=== PATIENT | female | born 1950 | race Caucasian/White ===

== ENCOUNTER 2020-04-29 08:32 | Outpatient (REF) | payer MEDICARE, SELFPAY ==
[2020-04-29 10:43] LABS: MANUAL DIFF FLAG NO
[2020-04-29 10:47] LABS: Basophils Percent Auto 0.7 % (0-2); Eosinophils Absolute Auto 0.1 X10*3/uL (0.0-0.4); Eosinophils Percent Auto 2.5 % (0-4); Hematocrit 40.3 % (37-47); Hemoglobin 13.4 g/dl (12.0-16.0); Imm Gran Abs Auto 0.01 X10*3/uL (0.00-0.03); Imm Gran Pct Auto 0.2 % (0.0-0.4); Lymphocytes Absolute Auto 1.4 X10*3/uL (1.2-4.9); Lymphocytes Percent Auto 34.5 % (20-40); Mean Corpuscular HGB Conc 33.3 g/dl (31.0-35.0); Mean Corpuscular Hemoglobin 32.9 pg (27.0-33.0); Mean Platelet Volume 10.9 fL (9.4-12.3); Monocytes Absolute Auto 0.5 X10*3/uL (0.1-1.2); Monocytes Percent Auto 11.4 % (2-11); Neutrophils Percent Auto 50.7 % (45-73); Platelet Count 206 X10*3/uL (160-400); Red Blood Count 4.07 X10*6/uL (4.20-5.50); Red Cell Distribution Width 13.2 % (11.0-16.0)
[2020-04-29 10:52] LABS: Glucose Urine UA NEG (NEG); Leukocyte Esterase Urine TRACE (NEG); Nitrite Urine NEG (NEG); PH 5.5 (5.0-8.0); Specific Gravity - Urine >= 1.030 (1.005-1.025); Urine Blood TRACE (NEG); Urine Ketones NEG (NEG); Urine Protein NEG (NEG-TRACE)
[2020-04-29 10:53] LABS: Appearance Urine CLOUDY; Color Urine YELLOW
[2020-04-29 11:07] LABS: Amorphous Sediment Urine 2+ /LPF; Bacteria Urine 1+ /LPF; RBC Urine 0-2 /HPF (0); Squamous Epithelial Cell Urine 1+ /LPF; WBC Urine 0-2 /HPF (0-4)
[2020-04-29 11:17] LABS: Creatinine Urine 186.99 mg/dL; Microalbum/Creatinine Ratio Ur 19.2 ug/mg cr
[2020-04-29 11:41] LABS: Alanine Aminotransferase 20 U/L (0-31); Albumin Level 4.2 g/dL (3.5-5.0); Alkaline Phosphatase 52 U/L (39-117); Anion Gap 13 (12-20); Aspartate Amino Transferase 20 U/L (5-31); Blood Urea Nitrogen 17 mg/dL (9-16); Calcium 9.4 mg/dL (8.4-10.2); Carbon Dioxide 28 mmol/L (22-29); Chloride 106 mmol/L (96-108); Cholesterol 291 mg/dL; Estimated Glomerular Filt Rate > 60; Glucose Fasting 112 mg/dL (60-99); HDL Cholesterol 103 mg/dL; LDL Cholesterol Calculated 172 mg/dl; Potassium 5.1 mmol/L (3.3-5.1); Sodium 142 mmol/L (135-145); Total Protein 6.7 g/dL (6.5-8.0); Triglycerides 83 mg/dL
[2020-04-29 12:07] LABS: TSH reflex Free T4 1.19 uIU/mL (0.32-4.0)
== END 2020-04-29 08:33 | disposition home or self-care (01) ==
LOC: HO.WFDLDS 08:32
PROVIDERS: Visit Provider Family Medicine
DX: Z00.00 Encounter for general adult medical examination without abnormal findings (principal); E78.00 Pure hypercholesterolemia, unspecified
CPT/HCPCS: 36415; 80053; 80061; 81001; 82043; 84443; 85025

== ENCOUNTER 2020-12-11 08:48 | Outpatient (REF) | payer MEDICARE, SELFPAY ==
[2020-12-11 12:36] LABS: Alanine Aminotransferase 20 U/L (0-31); Alkaline Phosphatase 48 U/L (39-117); Anion Gap 11 (12-20); Aspartate Amino Transferase 22 U/L (5-31); Bilirubin Total 0.9 mg/dL (0.0-1.0); Blood Urea Nitrogen 14 mg/dL (9-16); Calcium 9.5 mg/dL (8.4-10.2); Carbon Dioxide 28 mmol/L (22-29); Chloride 104 mmol/L (96-108); Cholesterol 285 mg/dL; Estimated Glomerular Filt Rate > 60; Glucose Fasting 108 mg/dL (60-99); HDL Cholesterol 87 mg/dL; LDL Cholesterol Calculated 185 mg/dl; Potassium 5.1 mmol/L (3.3-5.1); Sodium 138 mmol/L (135-145); Total Protein 6.7 g/dL (6.5-8.0); Triglycerides 69 mg/dL
[2020-12-11 13:41] LABS: Estimated Average Glucose 111 mg/dL; Hemoglobin A1c % 5.5 %
== END 2020-12-11 08:49 | disposition home or self-care (01) ==
LOC: HO.WFDLDS 08:48
PROVIDERS: Visit Provider Family Medicine
DX: Z00.00 Encounter for general adult medical examination without abnormal findings (principal); E78.00 Pure hypercholesterolemia, unspecified; R73.01 Impaired fasting glucose
CPT/HCPCS: 36415; 80053; 80061; 83036

== ENCOUNTER 2021-01-02 09:05 | Outpatient (REF) | payer MEDICARE, SELFPAY ==
--- NOTE | ~2021-01-02 | MM_ITS ---
EXAMINATION: BONE DENSITOMETRY CLINICAL INDICATION: Encounter for screening for osteoporosis. COMPARISON: Baseline BD dated 10/12/2017. TECHNIQUE: Using a [employer] DXA System (software version: 13.1) manufactured by [employer], dual-energy x-ray absorptiometry was performed of the lumbar spine and left hip. The images are of good technical quality. Summary results are attached. FINDINGS: AP SPINE L1-L2 (excluding L3 and L4): The data of L1-L4 has been changed to exclude the L3 and L4 vertebral bodies, because degenerative changes at these levels may cause overestimation of lumbar spine density. Current: BMD 1.156 g/cm2, Z-score 1.2, T-score -0.1, normal, 0.3% increase from baseline (<5% change is not significant). Baseline: BMD 1.152 g/cm2. LEFT FEMUR, NECK: Current: BMD 0.836 g/cm2, Z-score 0.0, T-score -1.5, osteopenia. Baseline: BMD 0.843 g/cm2. LEFT FEMUR, TOTAL: Current: BMD 0.936 g/cm2, Z-score 0.6, T-score -0.6, normal, 1.7% decrease from baseline (<5% change is not significant). Baseline: BMD 0.952 g/cm2. IDENTIFIED RISK FACTORS: Low calcium intake, hysterectomy, left oophorectomy, menopause. HISTORY OF FRACTURE: None listed. MEDICATIONS: Calcium supplements or multivitamin, vitamin D. MM/XR DEXA axial skeleton IMPRESSION: 1. DIAGNOSIS: Osteopenia based on the lowest T-score value of -1.5 in the femoral neck applying World Health Organization criteria. 2. 10-YEAR FRACTURE RISK PREDICTION, FRAX: Major osteoporotic fracture (clinical spine, forearm, hip or shoulder) 9.5%. Hip fracture 1.3%. 3. Treatment Recommendations: NOF guidelines recommend consideration for treatment in postmenopausal women and men age 50 and older presenting with the following: -A hip or vertebral (clinical or morphometric) fracture. -T-score less than or equal to -2.5 at the femoral neck or spine after appropriate evaluation to exclude secondary causes. -Low bone mass at the hip or spine and a 10-year fracture probability by FRAX of greater than or equal to 3% for hip fracture or greater than or equal to 20% for major osteoporotic fracture based on the [place] adapted WHO algorithm. 4. Other Recommendations: All treatment decisions require clinical judgment and consideration of individual patient factors, including patient preferences, comorbidities, previous drug use, risk factors not captured in the FRAX model (e.g. frailty, falls, vitamin D deficiency, increased bone turnover, interval significant decline in bone density) and possible under or overestimation of fracture risk by FRAX. Additional medical evaluation for secondary cause of low bone mineral density may be appropriate. FUTURE SCAN RECOMMENDATION: People with diagnosed cases of osteoporosis or at high risk for fracture should have regular bone mineral density tests. For patients eligible for Medicare, routine testing is allowed once every 2 years. The testing frequency can be increased to one year for patients who have rapidly progressing disease, those who are receiving or discontinuing medical therapy to restore bone mass, or have additional risk factors.
== END 2021-01-02 09:06 | disposition home or self-care (01) ==
LOC: HO.MAMMO 09:05
PROVIDERS: Visit Provider Family Medicine
DX: Z13.820 Encounter for screening for osteoporosis (principal); M85.80 Other specified disorders of bone density and structure, unspecified site; Z78.0 Asymptomatic menopausal state; Z79.899 Other long term (current) drug therapy; Z98.890 Other specified postprocedural states
CPT/HCPCS: 77080

== ENCOUNTER 2021-04-02 07:37 | Outpatient (REF) | payer MEDICARE, SELFPAY ==
[2021-04-02 11:07] LABS: Cholesterol 278 mg/dL; HDL Cholesterol 88 mg/dL; LDL Cholesterol Calculated 161 mg/dl; Triglycerides 145 mg/dL
== END 2021-04-02 07:38 | disposition home or self-care (01) ==
LOC: HO.WFDLDS 07:37
PROVIDERS: Visit Provider Family Medicine
DX: E78.00 Pure hypercholesterolemia, unspecified (principal)
CPT/HCPCS: 36415; 80061

== ENCOUNTER 2021-06-20 07:55 | Outpatient (REF) | payer MEDICARE, SELFPAY ==
[2021-06-20 12:06] LABS: TSH reflex Free T4 1.79 uIU/mL (0.32-4.0)
[2021-06-20 12:14] LABS: Alanine Aminotransferase 19 U/L (0-31); Albumin Level 3.9 g/dL (3.5-5.0); Alkaline Phosphatase 54 U/L (39-117); Anion Gap 13 (12-20); Aspartate Amino Transferase 22 U/L (5-31); Blood Urea Nitrogen 20 mg/dL (9-16); Calcium 9.4 mg/dL (8.4-10.2); Carbon Dioxide 28 mmol/L (22-29); Chloride 104 mmol/L (96-108); Cholesterol 261 mg/dL; Estimated Glomerular Filt Rate > 60; Glucose Fasting 116 mg/dL (60-99); HDL Cholesterol 85 mg/dL; LDL Cholesterol Calculated 152 mg/dl; Potassium 4.8 mmol/L (3.3-5.1); Sodium 140 mmol/L (135-145); Total Protein 6.6 g/dL (6.5-8.0); Triglycerides 121 mg/dL
== END 2021-06-20 07:56 | disposition home or self-care (01) ==
LOC: HO.WFDLDS 07:55
PROVIDERS: Visit Provider Family Medicine
DX: Z00.00 Encounter for general adult medical examination without abnormal findings (principal); E78.00 Pure hypercholesterolemia, unspecified
CPT/HCPCS: 36415; 80053; 80061; 84443

== ENCOUNTER 2021-07-01 09:46 | Outpatient (REF) | payer MEDICARE, SELFPAY ==
[2021-07-01 11:33] LABS: MANUAL DIFF FLAG NO
[2021-07-01 11:49] LABS: Basophils Percent Auto 0.6 % (0-2); Eosinophils Absolute Auto 0.1 X10*3/uL (0.0-0.4); Eosinophils Percent Auto 1.3 % (0-4); Hematocrit 40.3 % (37.0-47.0); Hemoglobin 13.5 g/dl (12.0-16.0); Imm Gran Abs Auto 0.01 X10*3/uL (0.00-0.03); Imm Gran Pct Auto 0.2 % (0.0-0.4); Lymphocytes Absolute Auto 1.2 X10*3/uL (1.2-4.9); Mean Corpuscular HGB Conc 33.5 g/dl (31.0-35.0); Mean Corpuscular Hemoglobin 33.3 pg (27.0-33.0); Mean Corpuscular Volume 99.3 fL (80.0-98.0); Monocytes Absolute Auto 0.5 X10*3/uL (0.1-1.2); Monocytes Percent Auto 11.5 % (2-11); Neutrophils Absolute Auto 2.8 x10*3/uL (2.0-8.3); Neutrophils Percent Auto 60.4 % (45-73); Platelet Count 191 X10*3/uL (160-400); Red Blood Count 4.06 X10*6/uL (4.20-5.50); Red Cell Distribution Width 13.2 % (11.0-16.0); White Blood Count 4.7 X10*3/uL (4.8-10.8)
[2021-07-01 11:55] LABS: Iron 90 mcg/dL (30-160); Percent Iron Saturation 22 % (15-50); Total Iron Binding Capacity 403 mcg/dL (228-428); Unsaturated Iron Binding 313 ug/dL
== END 2021-07-01 09:47 | disposition home or self-care (01) ==
LOC: HO.WFDLDS 09:46
PROVIDERS: Visit Provider Family Medicine
DX: Z00.00 Encounter for general adult medical examination without abnormal findings (principal); E61.1 Iron deficiency
CPT/HCPCS: 36415; 83540; 85025

== ENCOUNTER 2021-08-11 08:15 | Outpatient (REF) | payer MEDICARE, SELFPAY ==
[2021-08-11 11:46] LABS: Alanine Aminotransferase 22 U/L (0-31); Alkaline Phosphatase 49 U/L (39-117); Anion Gap 13 (12-20); Aspartate Amino Transferase 22 U/L (5-31); Bilirubin Total 1.1 mg/dL (0.0-1.0); Blood Urea Nitrogen 13 mg/dL (9-16); Calcium 9.2 mg/dL (8.4-10.2); Carbon Dioxide 27 mmol/L (22-29); Chloride 104 mmol/L (96-108); Cholesterol 286 mg/dL; Estimated Glomerular Filt Rate > 60; Glucose Fasting 100 mg/dL (60-99); HDL Cholesterol 84 mg/dL; LDL Cholesterol Calculated 182 mg/dl; Potassium 4.8 mmol/L (3.3-5.1); Sodium 139 mmol/L (135-145); Total Protein 6.7 g/dL (6.5-8.0); Triglycerides 102 mg/dL
[2021-08-11 12:10] LABS: Estimated Average Glucose 111 mg/dL; Hemoglobin A1c % 5.5 %
== END 2021-08-11 08:16 | disposition home or self-care (01) ==
LOC: HO.WFDLDS 08:15
PROVIDERS: Visit Provider Family Medicine
DX: Z00.00 Encounter for general adult medical examination without abnormal findings (principal); R73.01 Impaired fasting glucose; E78.00 Pure hypercholesterolemia, unspecified
CPT/HCPCS: 36415; 80053; 80061; 83036

== ENCOUNTER 2021-10-16 10:24 | Outpatient (REF) | payer MEDICARE, SELFPAY ==
[2021-10-16 14:55] LABS: Cholesterol 277 mg/dL; HDL Cholesterol 95 mg/dL; LDL Cholesterol Calculated 166 mg/dl; Triglycerides 81 mg/dL
== END 2021-10-16 10:25 | disposition home or self-care (01) ==
LOC: HO.WFDLDS 10:24
PROVIDERS: Visit Provider Family Medicine
DX: E78.00 Pure hypercholesterolemia, unspecified (principal)
CPT/HCPCS: 36415; 80061

== ENCOUNTER 2022-02-04 08:12 | Outpatient (REF) | payer MEDICARE, SELFPAY ==
[2022-02-04 12:11] LABS: Cholesterol 262 mg/dL; HDL Cholesterol 91 mg/dL; LDL Cholesterol Calculated 157 mg/dl; Triglycerides 74 mg/dL
== END 2022-02-04 08:13 | disposition home or self-care (01) ==
LOC: HO.WFDLDS 08:12
PROVIDERS: Visit Provider Family Medicine
DX: Z00.00 Encounter for general adult medical examination without abnormal findings (principal); E78.00 Pure hypercholesterolemia, unspecified
CPT/HCPCS: 36415; 80061

== ENCOUNTER 2022-06-15 09:47 | Outpatient (REF) | payer MEDICARE, SELFPAY ==
[2022-06-15 12:15] LABS: Anion Gap 13 (12-20); Blood Urea Nitrogen 17 mg/dL (9-16); Calcium 9.1 mg/dL (8.4-10.2); Carbon Dioxide 27 mmol/L (22-29); Chloride 107 mmol/L (96-108); Cholesterol 254 mg/dL; Estimated Glomerular Filt Rate > 60; Glucose Fasting 110 mg/dL (60-99); HDL Cholesterol 82 mg/dL; LDL Cholesterol Calculated 153 mg/dl; Potassium 4.7 mmol/L (3.3-5.1); Sodium 142 mmol/L (135-145); Triglycerides 96 mg/dL
[2022-06-15 12:23] LABS: Estimated Average Glucose 114 mg/dL; Hemoglobin A1c % 5.6 %
== END 2022-06-15 09:48 | disposition home or self-care (01) ==
LOC: HO.WFDLDS 09:47
PROVIDERS: Visit Provider Family Medicine
DX: Z00.00 Encounter for general adult medical examination without abnormal findings (principal); R73.01 Impaired fasting glucose; E78.00 Pure hypercholesterolemia, unspecified; I10 Essential (primary) hypertension
CPT/HCPCS: 36415; 80048; 80061; 83036

== ENCOUNTER 2022-10-09 09:14 | Outpatient (AMB) | payer MEDICARE, SELFPAY ==
[2022-10-09 09:22] VITALS: BP 130/76; PULSE 68; O2SAT 99; BMI 28.9
--- NOTE | 2022-10-09 09:22 | A.OFFPC_ITS ---
Vital Signs 10/09/22 09:22 Height 5 ft 4 in Weight 168 lb 4 oz BMI 28.9 BP 130/76 Blood Pressure Location Lt brachial Position Sitting Pulse 68 Pulse Source Pulse Oximeter Pulse Oximetry (%) 99 Oxygen Delivery Method Room Air Intake Visit Reasons: f/u hypertension and hypercholesterolemia Intake Note: Patient is here to follow up on hypertension and hypercholesterolemia. Allergies poison crystal extract [POISON CRYSTAL] Allergy (Unknown, Verified 10/09/22 09:26) RASH, SWELLING Medication List - Last Reconciled 10/09/22 by Emery Souza MD ezetimibe 10 mg PO DAILY 90 days lisinopril 10 mg PO DAILY 90 days Tobacco use date assessed: 10/09/22 Fall risk assessment: No Falls in past year Last assessed Fall Risk: 10/09/22 Dental Screening Dental Screen Date: 10/09/22 Did you have a dental visit in the last 12 months?: Yes Did you have a dental problem in the last 6 months where you did not have access to dental care?: No Was dental information given to patient?: No HPI f/u hypertension and hypercholesterolemia HPI Details 72 y/o female presents to f/u hypertension and hypercholesterolemia. Labs were drawn 06/15/22. Reviewed labs with pt. Triglycerides 96. TC 254. LDL 153. HDL 82. She is on ezetimibe 10mg daily. A1c 5.6%. A1c today 10/09/22 is 5.6%. Blood pressure today is 130/76. She is on lisinopril 10mg daily. HPI Comments History of Present Illness Details Documentation assistance for Emery Souza MD, was provided by Markus Mora, Cereal Miller on 10/09/2022 9:49 AM EST. [place], Dr. Souza, have read, observed, and verified documentation. 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 Phil Gross, Kacie Us, Ryan Burden and colleagues, with an educational scout from [employer]. Physical exam (Primary Care) Vital Signs: Last Vital Signs Pulse 68 10/09/22 09:22 BP 130/76 10/09/22 09:22 Pulse Ox 99 10/09/22 09:22 Oxygen Delivery Method Room Air 10/09/22 09:22 BMI result Body Mass Index 28.9 Tobacco/Smoking Status: Tobacco use Status Tobacco use date assessed 10/09/22 10/09/22 09:31 Patient Tobacco Use Status Never used Tobacco 10/09/22 09:24 e-Cigarette/Vaping Use Never Used 10/09/22 09:24 Thrive Assessment: Date of Thrive Assessment Date Thrive assessed 12/24/20 10/09/22 09:24 Results AMB Hemoglobin A1c AMB Hemoglobin A1c 5.6 % Last Edit by Ammy Moulton on 10/09/22 10:0 9 Assessment and Plan Assessment & Plan (1) Essential hypertension: Code(s): I10 - Essential (primary) hypertension Plan: Blood pressure is controlled on lisinopril. Goal is less than 140/90 Continue current medication Watch salt/sodium and maintain weight and exercise (2) Hypercholesterolemia: Code(s): E78.00 - Pure hypercholesterolemia, unspecified Plan: She does not tolerate statins and had high LDL cholesterol but also high HDL with good HDL ratios. Added Zetia which he is tolerating and ratios have improved though LDL is still above preferred goal Continue current medication regimen Continue a diet low in saturated fats and cholesterol (3) Elevated fasting blood sugar: Code(s): R73.01 - Impaired fasting glucose Plan: History of elevated fasting blood sugar and last A1c was 5.6%; top-normal. A1c today Coding Level of Care Code Est Pt Level 3 (55952) Diagnoses Essential hypertension I10 Hypercholesterolemia E78.00 Elevated fasting blood sugar R73.01
== END 2022-10-09 10:21 | disposition home or self-care (01) ==
PROVIDERS: PCP Family Medicine; Visit Provider Family Medicine
DX: I10 Essential (primary) hypertension (principal); E78.00 Pure hypercholesterolemia, unspecified; R73.01 Impaired fasting glucose
CPT/HCPCS: 99213

== ENCOUNTER 2023-01-20 09:20 | Outpatient (AMB) | payer MEDICARE, SELFPAY ==
--- NOTE | 2023-01-20 09:24 | A.OFFPC_ITS ---
Vital Signs 01/20/23 09:25 Height 5 ft 4 in Weight 171 lb 6 oz BMI 29.4 BP 128/76 Blood Pressure Location Rt brachial Position Sitting Respiration 16 Pulse 71 Pulse Source Pulse Oximeter Temp 16 F L Pulse Oximetry (%) 99 Oxygen Delivery Method Room Air Intake Visit Reasons: f/u hypertension and chronic conditions Intake Note: Patient is here for follow up on Lisinopril, and to follow up on chronic conditions. She states she feels a little light headed since taling this med. Allergies poison crystal extract [POISON CRYSTAL] Allergy (Unknown, Verified 01/20/23 09:26) RASH, SWELLING Tobacco use date assessed: 01/20/23 HPI f/u hypertension and chronic conditions HPI Details 72 y/o female presents to f/u hypertensi on and chronic conditions. Last A1c 10/09/22 5.6%. A1c today 01/20/23 is 5.6%. Blood pressure today is 128/76. She is on lisinopril 10mg daily. She does note lisinopril has making her lightheaded in the morning. 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 Phil Gross, Kacie Us, Ryan Burden and colleagues, with an educational scout from [employer]. Review of Systems Const Denies chills, Denies fatigue, Denies fever(s), Denies headache(s) and Denies weakness ENT Denies dizziness and Denies headache(s) Card Denies chest pain, Denies lightheadedness, Denies dyspnea and Denies other (Palpitations) Resp Denies cough, Denies dyspnea, Denies wheezing and Denies other ( shortness of breath) Musc Denies numbness and Denies tingling Neuro Denies dizziness, Denies headache(s), Denies numbness, Denies tingling, Denies paresthesias and Denies weakness Psych Denies anxiety and Denies depression Endo Denies fatigue Aller/Immun Denies wheezing Physical exam (Primary Care) Vital Signs: Last Vital Signs Temp 16 F L 01/20/23 09:25 Pulse 71 01/20/23 09:25 Resp 16 01/20/23 09:25 BP 128/76 01/20/23 09:25 Pulse Ox 99 01/20/23 09:25 Oxygen Delivery Method Room Air 01/20/23 09:25 BMI result Body Mass Index 29.4 Tobacco/Smoking Status: Tobacco use Status Tobacco use date assessed 01/20/23 01/20/23 09:31 Patient Tobacco Use Status Never used Tobacco 01/20/23 09:31 e-Cigarette/Vaping Use Never Used 01/20/23 09:31 Thrive Assessment: Date of Thrive Assessment Date Thrive assessed 12/24/20 01/20/23 09:31 Const General: no acute distress and well developed Nutritional Appearance: well nourished Orientation/consciousness: patient oriented x3 HENMT Head: Yes normocephalic and Yes atraumatic Eyes General: appearance normal, both eyes and all related structures Pupils: Equal, round and reactive pupils present EOM: EOMs intact bilaterally Resp Effort & Inspection: normal respiratory effort Auscultation: clear to auscultation bilaterally Cardio Rate: regular rate Rhythm: regular rhythm Heart sounds: S1 normal heart sound present, S2 normal heart sound present, no gallops, no murmurs and no rubs Neuro General: patient oriented x3 and gait normal Cranial nerves: Yes Equal, round and reactive pupils present Psych Affect: normal affect Assessment and Plan Assessment & Plan (1) Essential hypertension: Code(s): I10 - Essential (primary) hypertension Plan: Blood?pressure?appears?well?controlled?today.??Goal?is?less?than?140/90. Not?hypotensive?by?our?measurements?today?but?patient?did?note?that?she?gets?a?l ittle?lightheaded?when?bending?down?and?standing?back?up?again.??This?is?particu larly?happening?in?the?mornings. She?notes?she?is?not?much?of?a?water?drinker. She?does?have?a?blood?pressure?monitor?at?home Encouraged?her?to?increase?water?intake Check?blood?pressures?and?let?me?know?if ?blood?pressure?is?getting?low,?particularly?systolic?blood?pressure?less?than?1 05?with?symptoms. For?now,?continue?medication.??She?will?bring?me?in?a?log?of?her?blood?pressures ?at?her?next?visit. (2) Elevated fasting blood sugar: Code(s): R73.01 - Impaired fasting glucose Plan: She?is?h ad?elevated?fasting?blood?sugars?in?the?past.??A1c?is?again?5.6%?which?is?steady ?and?at?top?normal. Encouraged?diet?lower?in?sugars?and?starches Encouraged?exercise?and?weight?control. (3) Immunization counseling: Code(s): Z71.85 - Encounter for immunization safety counseling Plan: Patient?inquires?about?RSV?vaccine?and?I?recommend?this. Orders: Orders AMB Hemoglobin A1c Today Z13.9 - Encounter for screening, unspecified Coding Level of Care Code Est Pt Level 4 (51638) Diagnoses Essential hypertension I10 Elevated fasting blood sugar R73.01 Immunization counseling Z71.85
[2023-01-20 09:25] VITALS: BP 128/76; PULSE 71; RESP 16; TEMP -8.8; TEMP 16; O2SAT 99; BMI 29.4
== END 2023-01-20 09:50 | disposition home or self-care (01) ==
PROVIDERS: PCP Family Medicine; Visit Provider Family Medicine
DX: I10 Essential (primary) hypertension (principal); R73.01 Impaired fasting glucose; Z71.85 Encounter for immunization safety counseling
CPT/HCPCS: 99214

== ENCOUNTER 2023-04-20 09:14 | Outpatient (AMB) | payer MEDICARE, SELFPAY ==
--- NOTE | 2023-04-20 09:20 | MHC.PC.OV ---
Vital Signs 04/20/23 09:22 Height 5 ft 4 in Weight 166 lb 2 oz BMI 28.5 BP 120/72 Blood Pressure Location Rt brachial Position Sitting Pulse 68 Pulse Source Pulse Oximeter Pulse Oximetry (%) 97 Oxygen Delivery Method Room Air Intake Visit Reasons: Follow-up?hypertension Intake Note: Patient is here to follow up on HTN and medication review. Complaint of bowel habit change, with abdominal pain and lower back pain, stool softer every other day and miralax every third day. Balance Staff Inspector Required: No Certified Ski Patroller: Not Required per policy Accompanied by: Self / Same As Patient Allergies poison crystal extract [POISON CRYSTAL] Allergy (Unknown, Verified 04/20/23 09:22) RASH, SWELLING Tobacco use date assessed: 04/20/23 Fall risk assessment: No Falls in past year Last assessed Fall Risk: 04/20/23 Dental Screening Dental Screen Date: 04/20/23 Did you have a dental visit in the last 12 months?: Yes Did you have a dental problem in the last 6 months where you did not have access to dental care?: No Was dental information given to patient?: Patient has dentist HPI Follow-up?hypertension HPI Details 72 y/o female presents to f/u hypertension. Blood pressure today 120/72. She is on lisinopril 10mg daily. Pt reports abdominal pain and lower back pain today. She reports changes to her bowel habits. Pt reports she has been using a stool softener and miralax. 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 1. Little interest or pleasure in doing things: not at all 2. Feeling down, depressed, or hopeless: not at all 3. Trouble falling or staying asleep, or sleeping too much: not at all 4. Feeling tired or having little energy: not at all 5. Poor appetite or overeating: not at all 6. Feeling bad about yourself - or that you are a failure or have let yourself or your family down: not at all 7. Trouble concentrating on things, such as reading the newspaper or watching television: not at all 8. Moving or speaking so slowly that other people could have noticed. Or the opposite - being so fidgety or restless that you have been moving around a lot more than usual: not at all 9. Thoughts that you would be better off or of hurting yourself in some way: not at all Total score: 0 Depression Screening Interpretation: Negative Depression Screening Done: Yes Source: Developed by Drs. Phil Gross, Kacie Us, Ryan Burden and colleagues, with an educational scout from [employer]. Thrive Questionnaire Date Thrive assessed: 04/20/23 I am a: Patient What is your living situation today?: I have a steady place to live Within the past 12 months, did the food you bought not last and you didn't have the money to get more?: Never true Within the past 12 months, did you worry whether your food would run out before you got money to buy more?: Never true Do you have trouble paying for medicines?: No Do you have trouble getting transportation to medical appointments?: No Do you have trouble paying your heating and electricity bill?: No Do you have trouble taking care of your child, family member or friend?: No Do you have trouble with day-to-day activities such as bathing, preparing meals, shopping, managing finances, etc.?: No Are you currently unemployed and looking for a job?: No Are you interested in more education?: No Currently or been in a relationship where the following occur: no concerns reported THRIVE Score: 0 AUDIT C Alcohol Use Questionnaire (AUDIT-C) 1. How often do you have a drink containing alcohol?: 2-4 times a month 2. How many drinks containing alcohol do you have on a typical day when you are drinking?: 1 or 2 Total Score: 2 NAOMY-7 AMB Questionnaire NAOMY-7 Date NAOMY - 7 assessed: 04/20/23 Feeling nervous, anxious, or on edge: 1 = Several days Not being able to stop or control worryin = Several days Worrying too much about different things: 1 = Several days Trouble relaxin = Several days Being so restless that it is hard to sit still: 1 = Several days Becoming easily annoyed or irritable: 0 = Not at all Feeling afraid as if something awful might happen: 2 = More than half the days Total NAOMY-7 score (0-4 normal; 5-9 mild; 10-14 moderate; 15-21 severe): 7 Source: Developed by Drs. Phil Gross, Kacie Us, Ryan Burden and colleagues, with an educational scout from [employer]. Review of Systems Const Denies chills, Denies fatigue, Denies fever(s), Denies headache(s) and Denies weakness ENT Denies dizziness and Denies headache(s) Card Denies dyspnea Resp Denies cough, Denies dyspnea, Denies wheezing and Denies other (shortness of breath) Musc Denies numbness and Denies tingling Neuro Denies dizziness, Denies headache(s), Denies numbness, Denies tingling and Denies weakness Psych Denies anxiety and Denies depression Endo Denies fatigue Aller/Immun Denies wheezing Physical exam (Primary Care) Vital Signs: Last Vital Signs Pulse 68 04/20/23 09:22 BP 120/72 04/20/23 09:22 Pulse Ox 97 04/20/23 09:22 Oxygen Delivery Method Room Air 04/20/23 09:22 BMI result Body Mass Index 28.5 Tobacco/Smoking Status: Tobacco use Status Tobacco use date assessed 04/20/23 04/20/23 09:30 Patient Tobacco Use Status Never used Tobacco 04/20/23 09:30 e-Cigarette/Vaping Use Never Used 04/20/23 09:30 PHQ-9: PHQ-9 Score PHQ-9: Total score 0 04/20/23 10:13 Depression Screening Interpretation: Negative Thrive Assessment: Date of Thrive Assessment Date Thrive assessed 04/20/23 04/20/23 09:30 Currently or been in a relationship where the following occur: no concerns reported Const General: well developed; No acute distress Nutritional Appearance: well nourished Orientation/consciousness: patient oriented x3 [facility] Head: Yes normocephalic and Yes atraumatic Eyes General: appearance normal, both eyes and all related structures Pupils: Equal, round and reactive pupils present EOM: EOMs intact bilaterally Resp Effort & Inspection: normal respiratory effort Auscultation: clear to auscultation bilaterally Cardio Rate: regular rate Rhythm: regular rhythm Heart sounds: S1 normal heart sound present, S2 normal heart sound present, no gallops, no murmurs and no rubs Neuro General: patient oriented x3 and gait normal Cranial nerves: Yes Equal, round and reactive pupils present Psych Affect: normal affect Assessment and Plan Assessment & Plan (1) Essential hypertension: Code(s): I10 - Essential (primary) hypertension Plan: Blood?pressure?in?the?office?appears?controlled?but?her?log?of?blood?pressures?at?home?show?frequent?SBP?greater?than?140. She?can?take?lisinopril?10?mg?twice?a?day?when?blood?pressures?are?higher?than?140/90.??Otherwise?she?will?take?10?mg?daily ? (2) Abdominal pain: Code(s): R10.9 - Unspecified abdominal pain Plan: Patient?notes?abdominal?pain?and?distention?with?constipation. Increase?hydration Can?continue?MiraLax?every?other?day Try?simethicone?for?bloating Try?OTC?magnesium Referred?to?Gastroenterology (3) Constipation: Code(s): K59.00 - Constipation, unspecified Plan: As?above Orders: Referrals Gastroenterology Referral K59.00 - Constipation, unspecified, R10.9 - Unspecified abdominal pain Medications: New simethicone 80 mg PO BID-QID PRN 90 tabs 0RF abdominal distention 30 days Changed From lisinopril 10 mg PO DAILY 90 days 90 tabs 2RF To lisinopril 20 mg (2 x 10 mg) PO DAILY 180 tabs 2RF 90 days Coding Level of Care Code Est Pt Level 3 (42203) Diagnoses Essential hypertension I10 Abdominal pain R10.9 Constipation K59.00
[2023-04-20 09:22] VITALS: BP 120/72; PULSE 68; O2SAT 97; BMI 28.5
== END 2023-04-20 10:36 | disposition home or self-care (01) ==
PROVIDERS: PCP Family Medicine; Visit Provider Family Medicine
DX: I10 Essential (primary) hypertension (principal); R10.9 Unspecified abdominal pain; K59.00 Constipation, unspecified
CPT/HCPCS: 99213

== ENCOUNTER 2023-06-15 10:25 | Outpatient (AMB) | payer MEDICARE, SELFPAY ==
--- NOTE | 2023-06-15 10:35 | MHC.PC.OV ---
Vital Signs 06/15/23 10:36 Height 5 ft 4 in Weight 168 lb 2 oz BMI 28.9 BP 124/70 Blood Pressure Location Lt brachial Position Sitting Pulse 68 Pulse Source Pulse Oximeter Pulse Oximetry (%) 99 Oxygen Delivery Method Room Air Intake Visit Reasons: Follow-up?hypertension Intake Note: Patient is here for follow up on hypertension. Last BP of 130/70. Allergies poison crystal extract [POISON CRYSTAL] Allergy (Unknown, Verified 06/15/23 10:37) RASH, SWELLING Medication List - Last Reconciled 06/15/23 by Emery Souza MD ezetimibe 10 mg PO DAILY 90 days lisinopril 20 mg (2 x 10 mg) PO DAILY 90 days simethicone 80 mg PO BID-QID PRN 30 days Tobacco use date assessed: 06/15/23 Fall risk assessment: No Falls in past year Last assessed Fall Risk: 06/15/23 Dental Screening Dental Screen Date: 04/20/23 HPI Follow-up?hypertension HPI Details 73 y/o female presents to f/u hypertension. Had asked her to bring in a log of her blood pressures. Blood pressure today 124/70. She is on lisinopril 20mg daily. Blood pressure at home have been less than 130 systolic. 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 Phil Gross, Kacie Us, Ryan Burden and colleagues, with an educational scout from [employer]. Review of Systems Const Denies chills, Denies fatigue, Denies fever(s), Denies headache(s) and Denies weakness ENT Denies dizziness and Denies headache(s) Card Denies dyspnea Resp Denies cough, Denies dyspnea, Denies wheezing and Denies other (shortness of breath) Musc Denies numbness and Denies tingling Neuro Denies dizziness, Denies headache(s), Denies numbness, Denies tingling and Denies weakness Psych Denies anxiety and Denies depression Endo Denies fatigue Aller/Immun Denies wheezing Physical exam (Primary Care) BMI result Body Mass Index 28.9 Tobacco/Smoking Status: Tobacco use Status Tobacco use date assessed 04/20/23 04/20/23 09:30 Patient Tobacco Use Status Never used Tobacco 04/20/23 09:30 e-Cigarette/Vaping Use Never Used 04/20/23 09:30 Thrive Assessment: Date of Thrive Assessment Date Thrive assessed 04/20/23 04/20/23 09:30 Const General: well developed; No acute distress Nutritional Appearance: well nourished Orientation/consciousness: patient oriented x3 HENMT Head: Yes normocephalic and Yes atraumatic Eyes General: appearance normal, both eyes and all related structures Pupils: Equal, round and reactive pupils present EOM: EOMs intact bilaterally Resp Effort & Inspection: normal respiratory effort Neuro General: patient oriented x3 and gait normal Cranial nerves: Yes Equal, round and reactive pupils present Psych Affect: normal affect Assessment and Plan Assessment & Plan (1) Essential hypertension: Code(s): I10 - Essential (primary) hypertension Plan: Log?of?her?blood?pressures?shows?good?control.??Goal?is?less?than?140/90 No?dizziness - she?has?increased?her?fluid?intake?and?in?the?mornings?she?sits?on?the?side?of?her?bed?and?exercises?her?legs?until?she?is?ready?to?stand. Continue?current?medication?and?the?above?exercise?regimen Orders: Orders Comprehensive [place]. Panel Fast Today Z00.00 - Encounter for general adult medical examination without abnormal findings Complete Blood Count Auto Diff Today Z00.00 - Encounter for general adult medical examination without abnormal findings Lipid Panel Today Z00.00 - Encounter for general adult medical examination without abnormal findings TSH reflex Free T4 Today Z00.00 - Encounter for general adult medical examination without abnormal findings Hemoglobin A1c Today R73.01 - Impaired fasting glucose Microalbumin, Random (w Creat) Today I10 - Essential (primary) hypertension UA and rflx microscopic Today Z00.00 - Encounter for general adult medical examination without abnormal findings Coding Level of Care Code Est Pt Level 3 (61185) Diagnoses Essential hypertension I10
[2023-06-15 10:36] VITALS: BP 124/70; PULSE 68; O2SAT 99; BMI 28.9
== END 2023-06-15 10:58 | disposition home or self-care (01) ==
PROVIDERS: PCP Family Medicine; Visit Provider Family Medicine
DX: I10 Essential (primary) hypertension (principal)
CPT/HCPCS: 99213

== ENCOUNTER 2023-07-20 08:12 | Outpatient (AMB) | payer MEDICARE, SELFPAY ==
--- NOTE | 2023-07-20 08:43 | A.OFFVIS_ITS ---
Vital Signs 07/20/23 08:45 Height 5 ft 4 in Weight 169 lb BMI 29.0 BP 128/66 Blood Pressure Location Lt brachial Position Sitting Pulse 64 Intake Visit Reasons: Constipation/ Abd pain Intake Note: Patient new consult for abdominal pain and constipation. Patient cc: abdominal discomfort, and between diarrhea and constipation on and off. Capacitor Inspector Required: No Accompanied by: Self / Same As Patient Allergies poison crystal extract [POISON CRYSTAL] Allergy (Unknown, Verified 07/20/23 08:42) RASH, SWELLING HPI Comments Details: A 73 y/o female referred with constipation--she had 2 bouts of constipation-she has since taking stool softener- she says that helped a lot- she just feels she could go more-however she has not had any further constipation Colonoscopy 2018-no issues she took miralax with excellent response-she has not had any further issues, she feels she is well managed She eats s fruit and yogurt- she admits she does not eat fiber No nausea, vomiting, abdominal pain, hematemesis, hematochezia fever or chills PFSH Surgical History Hx of removal of ovary History of hysterectomy Family History Father Depression Mental health disorder Mother HTN (hypertension) Sister Mental health disorder Sister Depression Social History Housing: House Alcohol intake: current Alcohol intake frequency: a few times a month Patient Tobacco Use Status: Never used Tobacco e-Cigarette/Vaping Use: Never Used Second Hand Smoke Exposure: No service: No Current occupational status: employed and retired 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, 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 Current occupational exposures/hazards: No Cognitive needs: No Hearing needs: No Vision needs: Yes (glasses) Review of Systems Const All systems reviewed & are unremarkable except as noted in HPI and below Card Denies chest pain and Denies dyspnea Resp Denies dyspnea GI Denies abdominal pain, Denies hematochezia, Denies heartburn, Denies nausea and Denies vomiting Physical Exam Vital Signs: Last Vital Signs Pulse 64 07/20/23 08:45 BP 128/66 07/20/23 08:45 BMI result Body Mass Index 29.0 Const General: cooperative, healthy appearing, comfortable and no acute distress Orientation/consciousness: patient oriented x3 Limitations: no limitations Resp Effort & Inspection: normal respiratory effort and able to speak in complete sentences Auscultation: clear to auscultation bilaterally, no rales, no rhonchi and no wheezes Cardio Rate: regular rate Rhythm: regular rhythm Heart sounds: S1 normal heart sound present and S2 normal heart sound present GI Palpation (GI): Soft to palpation and nontender Auscultation: normal bowel sounds Skin General skin exam: no rashes or lesions noted Neuro General: patient oriented x3 Extrem General: Yes full ROM Psych Appearance: grossly normal Mental Status: mental status grossly normal Speech and movement: Normal speech and movement present and Clear speech present Affect: normal affect Attitude: cooperative Thought process: Normal thought process present Thought content: Normal thought content present Insight: Good insight present (Psych) Judgement: Good judgement present (Psych) Results Reviewed Results Reviewed: 2018- normal colonoscopy- repeat 10 years Assessment & Plan Assessment & Plan (1) Constipation: Comment: She prefers to manage by diet and fiber supplement-she would like to continue to monitor if any further episodes she will report Code(s): K59.00 - Constipation, unspecified Category: Medical Plan: fiber Plan HFD Consistent Orders: Orders 2 Complete Blood Count Auto Diff Today K59.00 - Constipation, unspecified, R10.9 - Unspecified abdominal pain Comprehensive Met. Panel Today K58.9 - Irritable bowel syndrome without diarrhea Thyroid Stimulating Hormone Today R19.8 - Other specified symptoms and signs involving the digestive system and abdomen Hepatitis C Antibody Reflex Today Z00.00 - Encounter for general adult medical examination without abnormal findings Patient Instructions: Very pleasant 73-year-old female to episodes of constipation now resolved Discussed importance of consistent bowel regimen Adequate hydrated Fiber supplements discussed menu planning literature given We will see her back in 6 months for progress sooner if indicated Encouraged to call with any questions or concerns Coding Level of Care Code New Pt Level 3 (30517) Diagnoses Constipation K59.00 Time Spent (min) 30
[2023-07-20 08:45] VITALS: BP 128/66; PULSE 64; BMI 29.0
== END 2023-07-20 09:25 | disposition home or self-care (01) ==
PROVIDERS: PCP Family Medicine; Visit Provider Physician Assistant
DX: K59.00 Constipation, unspecified (principal)
CPT/HCPCS: 99203

== ENCOUNTER → 2023-07-20 08:12 | Outpatient (BNVA) | payer MEDICARE, SELFPAY | PROVIDERS: PCP Family Medicine; Visit Provider Physician Assistant | DX: K59.00 Constipation, unspecified (principal) | CPT/HCPCS: 99202 ==

== ENCOUNTER 2023-10-26 08:18 | Outpatient (REF) | payer MEDICARE, SELFPAY ==
[2023-10-26 11:29] LABS: Appearance Urine Cloudy; Color Urine Yellow; Glucose Urine UA Negative (Negative); Leukocyte Esterase Urine Small (1+) (Negative); Nitrite Urine Negative (Negative); UMIC TRIGGER UA YES; Urine Blood Negative (Negative); Urine Ketones Negative (Negative); Urine Protein Negative (Neg-Trace)
[2023-10-26 11:32] LABS: MANUAL DIFF FLAG NO
[2023-10-26 11:32] LABS: Bacteria Urine None Seen (None Seen); Hyaline Casts Urine 0-2 /LPF (0-2); RBC Urine 0-2 /HPF (0-2)
[2023-10-26 11:37] LABS: Basophils Percent Auto 0.7 % (0-2); Eosinophils Absolute Auto 0.1 X10*3/uL (0.0-0.4); Eosinophils Percent Auto 2.9 % (0-4); Hematocrit 40.6 % (37.0-47.0); Hemoglobin 13.8 g/dl (12.0-16.0); Imm Gran Abs Auto 0.01 X10*3/uL (0.00-0.03); Imm Gran Pct Auto 0.2 % (0.0-0.4); Lymphocytes Absolute Auto 1.4 X10*3/uL (1.2-4.9); Lymphocytes Percent Auto 32.7 % (20-40); Mean Corpuscular Hemoglobin 34.2 pg (27.0-33.0); Mean Corpuscular Volume 100.5 fL (80.0-98.0); Mean Platelet Volume 10.9 fL (9.4-12.3); Monocytes Absolute Auto 0.4 X10*3/uL (0.1-1.2); Neutrophils Absolute Auto 2.2 x10*3/uL (2.0-8.3); Neutrophils Percent Auto 53.5 % (45-73); Platelet Count 212 X10*3/uL (160-400); Red Blood Count 4.04 X10*6/uL (4.20-5.50); Red Cell Distribution Width 13.2 % (11.0-16.0); White Blood Count 4.2 X10*3/uL (4.8-10.8)
[2023-10-26 11:46] LABS: Estimated Average Glucose 108 mg/dL; Hemoglobin A1C 130.2852 umol/L; Hemoglobin A1c % 5.4 % (<6.0)
[2023-10-26 12:09] LABS: Creatinine Urine 136.96 mg/dL; Microalbum/Creatinine Ratio Ur 21.9 ug/mg cr (<30)
[2023-10-26 12:16] LABS: Alanine Aminotransferase 24 U/L (0-31); Albumin Level 4.1 g/dL (3.5-5.0); Alkaline Phosphatase 52 U/L (39-117); Anion Gap 14 (12-20); Aspartate Amino Transferase 23 U/L (5-31); Bilirubin Total 0.7 mg/dL (0.0-1.0); Blood Urea Nitrogen 16 mg/dL (9-16); Calcium 9.8 mg/dL (8.4-10.2); Carbon Dioxide 24 mmol/L (22-29); Chloride 107 mmol/L (96-108); Cholesterol 273 mg/dL (<200); Estimated Glomerular Filt Rate > 60; Glucose Fasting 103 mg/dL (60-99); HDL Cholesterol 82 mg/dL (>40); LDL Cholesterol Calculated 167 mg/dL (<100); Potassium 4.4 mmol/L (3.3-5.1); Sodium 141 mmol/L (135-145); Total Protein 7.1 g/dL (6.5-8.0); Triglycerides 123 mg/dL (<150)
== END 2023-10-26 08:19 | disposition home or self-care (01) ==
LOC: HO.WFDLDS 08:18
PROVIDERS: Referring Provider Physician Assistant; Visit Provider Family Medicine
DX: Z00.00 Encounter for general adult medical examination without abnormal findings (principal); I10 Essential (primary) hypertension; R73.01 Impaired fasting glucose; R19.8 Other specified symptoms and signs involving the digestive system and abdomen
CPT/HCPCS: 36415; 80053; 80061; 81001; 82043; 82570; 83036; 84443; 85025

== ENCOUNTER 2023-10-29 09:00 | Outpatient (REF) | payer MEDICARE, SELFPAY ==
[2023-10-30 04:04] LABS: ~HepC Num1 0.11 S/CO (0.00-0.79); ~Hepatitis C Antibody Nonreactive (Nonreactive)
== END 2023-10-29 09:01 | disposition home or self-care (01) ==
LOC: HO.WFDLDS 09:00
PROVIDERS: Physician Assistant; Visit Provider Family Medicine
DX: Z00.00 Encounter for general adult medical examination without abnormal findings (principal)
CPT/HCPCS: 36415; 86803

== ENCOUNTER 2023-11-08 10:48 | Outpatient (AMB) | payer MEDICARE, SELFPAY ==
--- NOTE | 2023-11-08 11:01 | MHC.PC.OV ---
Vital Signs 11/08/23 11:07 Height 5 ft 4 in Weight 169 lb 4 oz BMI 29.0 BP 126/58 L Blood Pressure Location Lt brachial Position Sitting Respiration 16 Pulse 66 Pulse Source Pulse Oximeter Temp 97.2 F Temp Source Temporal Artery Scan Pulse Oximetry (%) 100 Oxygen Delivery Method Room Air Intake Visit Reasons: CPE Intake Note: CPE Allergies poison crystal extract [POISON CRYSTAL] Allergy (Unknown, Verified 11/08/23 11:02) RASH, SWELLING Tobacco use date assessed: 11/08/23 Fall risk assessment: No Falls in past year Last assessed Fall Risk: 11/08/23 Dental Screening Dental Screen Date: 11/08/23 Did you have a dental visit in the last 12 months?: Yes Did you have a dental problem in the last 6 months where you did not have access to dental care?: No Was dental information given to patient?: Patient has dentist HPI HPI Comments History of Present Illness Details This is a 73-year-old female with a past medical history of hypertension, constipation, hypercholesterolemia, osteopenia an elevated fasting blood sugar presenting for a physical exam. We reviewed her blood count. She has mild leukopenia dating back to at least 05/18/2020. Her red blood cell count is slightly below the normal lab range. She also has mild macrocytosis. She drinks socially. She usually has 6 glasses of wine per week. Her white blood cell differential is normal. No fatigue, night sweats, fevers, chills or unexplained weight loss. Her LDL cholesterol is elevated at 167. She is compliant with Zetia. She took atorvastatin, but it made her feel very unwell and she experienced hallucinations on it. She eats a lot of red meat at home because her enjoys it. If she goes out to dinner she is more likely to order fish. She has nonfat yogurt. She uses whole milk in her coffee every day. She increased fiber in her diet this year. She is exercising at the [employer]. Her hemoglobin A1c is normal. 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 They did not need to do a biopsy. Her dentist is still monitoring it. Last colonoscopy 2017 and no issues per Gastroenterology note 07/19/2023. She has mammograms every other year. Denies family history of breast cancer. Denies breast pain, masses or discharge. She does not see chief wharfinger and does not wish to unless an issue arises. She has had a hysterectomy. She is referred to Dermatology for a skin exam. ROS: Constitutional: No unexplained weight loss, fever, chills, fatigue or night sweats. Eyes: No vision changes, blurry vision, double vision, eye pain, eye redness, eye discharge. ENT: No hearing loss, sneezing, congestion, runny nose or sore throat. Respiratory: No shortness of breath, cough or sputum production. Cardiovascular: No chest pain, chest pressure or chest discomfort. No palpitations or pedal edema. Gastrointestinal: No anorexia, nausea, vomiting or diarrhea. No abdominal pain or blood in stool. Genitourinary: No dysuria, hematuria, urinary frequency. Neurologic: No headache, dizziness, syncope, unilateral weakness, ataxia, numbness or tingling in the extremities. Musculoskeletal: No muscle pain, back pain, joint pain or swelling. Hematologic/Lymphatics: No bleeding or bruising. No painful lymph nodes. Skin: No rash or itching. Endocrine: No cold or heat intolerance. No polyuria or polydipsia. Psychiatric: No depression or anxiety. No SI/HI. Physical exam: Constitutional: Alert, in no distress. Head: Normocephalic. Eyes: Pupils are equal, round and reactive to light. Extraocular muscles intact. Ear, Nose and Throat: Canals clear. TMs normal. Normal nasal mucosa. No nasal discharge. No oral lesions. Neck: Supple, Full range of motion. No lymphadenopathy. No palpable thyroid masses. Respiratory: Clear to auscultation. Cardiovascular: S1 S2 regular. No murmurs. Gastrointestinal: Abdomen soft, non-tender, non-distended. Normal bowel sounds. No palpable masses. Neurologic: No focal neurological deficits. Symmetric patellar reflexes. Moves all extremities spontaneously. Sensation intact bilaterally. Skin: No rashes. Musculoskeletal: No gross deformities. Normal range of motion. Extremities: Warm and well perfused. No clubbing, cyanosis or edema. 3+ peripheral pulses bilaterally. Psychiatric: Normal mood and affect [facility] Medical History (Updated 11/08/23 @ 11:28 by DIDIER Waite) Abnormal CBC Surgical History Hx of removal of ovary History of hysterectomy Family History Father Depression Mental health disorder Mother HTN (hypertension) Sister Mental health disorder Sister Depression Social History (Updated 11/08/23 @ 11:04 by Chad Vaughn MA) Housing: House Alcohol intake: current Alcohol intake frequency: a few times a month Patient Tobacco Use Status: Never used Tobacco e-Cigarette/Vaping Use: Never Used Second Hand Smoke Exposure: No Use of substances other than those prescribed or required for medical reasons: No service: No Current occupational status: employed and retired 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 1. Little interest or pleasure in doing things: not at all 2. Feeling down, depressed, or hopeless: not at all 3. Trouble falling or staying asleep, or sleeping too much: several days 4. Feeling tired or having little energy: several days 5. Poor appetite or overeating: not at all 6. Feeling bad about yourself - or that you are a failure or have let yourself or your family down: not at all 7. Trouble concentrating on things, such as reading the newspaper or watching television: not at all 8. Moving or speaking so slowly that other people could have noticed. Or the opposite - being so fidgety or restless that you have been moving around a lot more than usual: not at all 9. Thoughts that you would be better off or of hurting yourself in some way: not at all Total score: 2 Depression Screening Interpretation: Negative Depression Screening Done: Yes 83276 - PHQ-9 Billing: Yes Source: Developed by Drs. Phil Gross, Kacie Us, Ryan Burden and colleagues, with an educational scout from [email or web address]. Thrive Questionnaire Date Thrive assessed: 11/08/23 I am a: Patient What is your living situation today?: I have a steady place to live Within the past 12 months, did the food you bought not last and you didn't have the money to get more?: Never true Within the past 12 months, did you worry whether your food would run out before you got money to buy more?: Never true Do you have trouble paying for medicines?: No Do you have trouble getting transportation to medical appointments?: No Do you have trouble paying your heating and electricity bill?: No Do you have trouble taking care of your child, family member or friend?: Yes Do you have trouble with day-to-day activities such as bathing, preparing meals, shopping, managing finances, etc.?: No Are you currently unemployed and looking for a job?: No Are you interested in more education?: No Please select the resources that you would like help with: None Currently or been in a relationship where the following occur: No concerns reported THRIVE Score: 0 AUDIT C Alcohol Use Questionnaire (AUDIT-C) 1. How often do you have a drink containing alcohol?: 2-3 times a week 2. How many drinks containing alcohol do you have on a typical day when you are drinking?: 1 or 2 3. How often do you have six or more drinks on one occasion?: Never Total Score: 3 Score Reviewed/Action Taken: Yes NAOMY-7 AMB Questionnaire NAOMY-7 Date NAOMY - 7 assessed: 11/08/23 Feeling nervous, anxious, or on edge: 1 = Several days Not being able to stop or control worryin = Several days Worrying too much about different things: 1 = Several days Trouble relaxin = Several days Being so restless that it is hard to sit still: 0 = Not at all Becoming easily annoyed or irritable: 0 = Not at all Feeling afraid as if something awful might happen: 1 = Several days Total NAOMY-7 score (0-4 normal; 5-9 mild; 10-14 moderate; 15-21 severe): 5 Source: Developed by Drs. Phil Gross, Kacie Us, Ryan Burden and colleagues, with an educational scout from [email or web address]. NAOMY-7 Assessment Billing NAOMY-7 Assessment Tool: NAOMY-7 Assessment 90597 Physical exam (Primary Care) Vital Signs: Last Vital Signs Temp 97.2 F 11/08/23 11:07 Pulse 66 11/08/23 11:07 Resp 16 11/08/23 11:07 BP 126/58 L 11/08/23 11:07 Pulse Ox 100 11/08/23 11:07 Oxygen Delivery Method Room Air 11/08/23 11:07 BMI result Body Mass Index 29.0 Tobacco/Smoking Status: Tobacco use Status Tobacco use date assessed 11/08/23 11/08/23 11:08 Patient Tobacco Use Status Never used Tobacco 11/08/23 11:04 e-Cigarette/Vaping Use Never Used 11/08/23 11:04 PHQ-9: PHQ-9 Score PHQ-9: Total score 2 11/08/23 11:08 Depression Screening Interpretation: Negative Thrive Assessment: Date of Thrive Assessment Date Thrive assessed 11/08/23 11/08/23 11:08 Currently or been in a relationship where the following occur: No concerns reported Assessment and Plan Assessment & Plan (1) Routine physical examination: Code(s): Z00.00 - Encounter for general adult medical examination without abnormal findings (2) Essential hypertension: Code(s): I10 - Essential (primary) hypertension (3) Elevated fasting blood sugar: Code(s): R73.01 - Impaired fasting glucose (4) Hypercholesterolemia: Code(s): E78.00 - Pure hypercholesterolemia, unspecified (5) Abnormal CBC: Code(s): R79.89 - Other specified abnormal findings of blood chemistry (6) Osteopenia: Code(s): M85.80 - Other specified disorders of bone density and structure, unspecified site Plan Patient is seen today for a routine physical. As part of this visit we reviewed the following issues, which are considered and essential part of preventative health in this age group: - Breast Cancer screening -declined by pt - Annual Manufacturing Systems Engineer exam -declined by pt - Screening for colon cancer - Blood pressure screening - Cholesterol screening - Osteoporosis prevention including calcium/vitamin D intake, weight bearing exercise & smoking cessation - bone density ordered - Nutritional and exercise counseling - Counseling of injury prevention including fire prevention, smoke alarms and seat belt usage - Education about skin cancer - Recommendations about immunizations - Recommendation of an eye exam - Screening for substance abuse White blood cell differential is normal. We discussed alcohol intake may cause mild decrease in white blood cells and macrocytosis. She will decrease alcohol intake by half and repeat labs in 6 weeks. Follow up via telehealth in 7 weeks. Patient does not want to try alternative statin which I understand because she did have a bad reaction to atorvastatin. Discussed PCKS9 inhibitor, but she declines for now. She is going to work on lifestyle modifications which were outlined in detail today. Continue Zetia 10 mg daily. Orders: Orders Complete Blood Count Auto Diff Today R79.89 - Other specified abnormal findings of blood chemistry IRON PROFILE Today R79.89 - Other specified abnormal findings of blood chemistry Vitamin B12 and Folate Today R79.89 - Other specified abnormal findings of blood chemistry Vitamin D 1,25 dihydroxy Today M85.80 - Other specified disorders of bone density and structure, unspecified site Ferritin Today R79.89 - Other specified abnormal findings of blood chemistry XR DEXA axial skeleton Today N95.1 - Menopausal and female climacteric states Referrals Dermatology Referral Z12.83 - Encounter for screening for malignant neoplasm of skin Coding Level of Care Code Est Pt Prev Care >65y(48219) Diagnoses Routine physical examination Z00.00 Essential hypertension I10 Elevated fasting blood sugar R73.01 Hypercholesterolemia E78.00 Abnormal CBC R79.89 Osteopenia M85.80 Additional Codes NAOMY-7 Assessment Billing - NAOMY-7 Assessment Tool: NAOMY-7 Assessment 67589 ([id number])
[2023-11-08 11:07] VITALS: BP 126/58; PULSE 66; RESP 16; TEMP 36.2; O2SAT 100; BMI 29.0
== END 2023-11-08 13:33 | disposition home or self-care (01) ==
PROVIDERS: PCP Family Medicine; Visit Provider Physician Assistant Medical
DX: Z00.00 Encounter for general adult medical examination without abnormal findings (principal); I10 Essential (primary) hypertension; R73.01 Impaired fasting glucose; E78.00 Pure hypercholesterolemia, unspecified; R79.89 Other specified abnormal findings of blood chemistry; M85.80 Other specified disorders of bone density and structure, unspecified site
CPT/HCPCS: 99397

== ENCOUNTER 2023-12-08 09:34 | Outpatient (REF) | payer MEDICARE, SELFPAY ==
--- NOTE | ~2023-12-08 | MM_ITS ---
EXAMINATION: BONE DENSITOMETRY CLINICAL INDICATION: Menopause, hysterectomy, bilateral oophorectomy. COMPARISON: Previous BD dated 01/02/2021 and baseline BD dated 10/12/2017. TECHNIQUE: Using a [employer] DXA System (software version: 13.1) manufactured by [employer], dual-energy x-ray absorptiometry was performed of the lumbar spine and left hip. The images are of good technical quality. Summary results are attached. FINDINGS: LEFT FEMUR, NECK: Current: BMD 0.835 g/cm2, Z-score 0.2, T-score -1.5, osteopenia. Prior: BMD 0.836 g/cm2. Baseline: BMD 0.843 g/cm2. LEFT FEMUR, TOTAL: Current: BMD 0.960 g/cm2, Z-score 1.0, T-score -0.4, normal, 2.6% increase from previous, 0.8% increase from baseline (<5% change is not significant). Prior: BMD 0.936 g/cm2. Baseline: BMD 0.952 g/cm2. AP SPINE L1-L3 (excluding L4): The data of L1-L4 has been changed to exclude the L4 vertebral body, because significant degenerative change at this level may cause overestimation of lumbar spine density. Current: BMD 1.206 g/cm2, Z-score 1.7, T-score 0.3, normal, 2.1% decrease from previous, 1.1% decrease from baseline (<5% change is not significant). Prior: BMD 1.232 g/cm2. Baseline: BMD 1.219 g/cm2. IDENTIFIED RISK FACTORS: Menopause, hysterectomy, bilateral oophorectomy. HISTORY OF FRACTURE: None listed. MEDICATIONS: Multivitamin. MM/XR DEXA axial skeleton IMPRESSION: 1. DIAGNOSIS: Osteopenia based on the lowest T-score value of -1.5 in the femoral neck applying World Health Organization criteria. 2. 10-YEAR FRACTURE RISK PREDICTION, FRAX: Major osteoporotic fracture (clinical spine, forearm, hip or shoulder) 10.4%. Hip fracture 1.7%. 3. Treatment Recommendations: NOF guidelines recommend consideration for treatment in postmenopausal women and men age 50 and older presenting with the following: -A hip or vertebral (clinical or morphometric) fracture. -T-score less than or equal to -2.5 at the femoral neck or spine after appropriate evaluation to exclude secondary causes. -Low bone mass at the hip or spine and a 10-year fracture probability by FRAX of greater than or equal to 3% for hip fracture or greater than or equal to 20% for major osteoporotic fracture based on the [place] adapted WHO algorithm. 4. Other Recommendations: All treatment decisions require clinical judgment and consideration of individual patient factors, including patient preferences, comorbidities, previous drug use, risk factors not captured in the FRAX model (e.g. frailty, falls, vitamin D deficiency, increased bone turnover, interval significant decline in bone density) and possible under or overestimation of fracture risk by FRAX. Additional medical evaluation for secondary cause of low bone mineral density may be appropriate. FUTURE SCAN RECOMMENDATION: People with diagnosed cases of osteoporosis or at high risk for fracture should have regular bone mineral density tests. For patients eligible for Medicare, routine testing is allowed once every 2 years. The testing frequency can be increased to one year for patients who have rapidly progressing disease, those who are receiving or discontinuing medical therapy to restore bone mass, or have additional risk factors. Electronically signed by: Alex Segovia MD 12/08/2023 04:32 PM EDT [facility]
== END 2023-12-08 09:35 | disposition home or self-care (01) ==
LOC: HO.MAMMO 09:34
PROVIDERS: PCP Family Medicine; Visit Provider Physician Assistant Medical
DX: Z13.820 Encounter for screening for osteoporosis (principal); Z78.0 Asymptomatic menopausal state
CPT/HCPCS: 77080

== ENCOUNTER 2023-12-22 08:33 | Outpatient (REF) | payer MEDICARE, SELFPAY ==
[2023-12-22 11:30] LABS: MANUAL DIFF FLAG NO
[2023-12-22 11:37] LABS: Basophils Percent Auto 0.4 % (0-2); Eosinophils Absolute Auto 0.1 X10*3/uL (0.0-0.4); Eosinophils Percent Auto 1.8 % (0-4); Hematocrit 37.8 % (37.0-47.0); Hemoglobin 12.7 g/dl (12.0-16.0); Imm Gran Abs Auto 0.01 X10*3/uL (0.00-0.03); Imm Gran Pct Auto 0.2 % (0.0-0.4); Lymphocytes Absolute Auto 1.4 X10*3/uL (1.2-4.9); Lymphocytes Percent Auto 31.1 % (20-40); Mean Corpuscular HGB Conc 33.6 g/dl (31.0-35.0); Mean Corpuscular Hemoglobin 33.2 pg (27.0-33.0); Mean Platelet Volume 10.6 fL (9.4-12.3); Monocytes Absolute Auto 0.5 X10*3/uL (0.1-1.2); Monocytes Percent Auto 10.8 % (2-11); Neutrophils Absolute Auto 2.5 x10*3/uL (2.0-8.3); Neutrophils Percent Auto 55.7 % (45-73); Platelet Count 193 X10*3/uL (160-400); Red Blood Count 3.82 X10*6/uL (4.20-5.50); Red Cell Distribution Width 13.6 % (11.0-16.0); White Blood Count 4.5 X10*3/uL (4.8-10.8)
[2023-12-22 12:31] LABS: Iron 106 mcg/dL (30-160); Percent Iron Saturation 35 % (15-50); Total Iron Binding Capacity 306 mcg/dL (228-428); Unsaturated Iron Binding 200 ug/dL
[2023-12-22 12:35] LABS: Ferritin 149 ng/mL (10-250)
[2023-12-22 12:53] LABS: Vitamin B12 327 pg/mL (200-900)
[2023-12-26 16:59] LABS: VITAMIN D (1,25 OH) D3 34 pg/mL; Vit D (1,25-Dihydroxy) Total 34 pg/mL (18-72); Vitamin D (1,25 OH) D2 <8 pg/mL
== END 2023-12-22 08:34 | disposition home or self-care (01) ==
LOC: HO.WFDLDS 08:33
PROVIDERS: Visit Provider Physician Assistant Medical
DX: R79.89 Other specified abnormal findings of blood chemistry (principal); M85.80 Other specified disorders of bone density and structure, unspecified site
CPT/HCPCS: 36415; 82607; 82652; 82728; 82746; 83540; 85025

== ENCOUNTER → 2024-01-19 09:10 | Outpatient (AMB) | payer MEDICARE, SELFPAY ==
--- NOTE | 2024-01-19 09:04 | A.OFFPC_ITS ---
Intake Visit Reasons: lab results Intake Note: lab review Allergies poison crystal extract [POISON CRYSTAL] Allergy (Unknown, Verified 01/19/24 09:07) RASH, SWELLING Tobacco use date assessed: 11/08/23 Dental Screening Dental Screen Date: 11/08/23 HPI lab results HPI Details 73 y/o female presents to f/u labs via [employer]. Labs drawn 12/22/23. Reviewed labs with pt. Had mild leukopenia from labs drawn prior. CBC seems to improve. She notes she has cut back on EtOH and food. Has been exercising more often. [facility], [facility] Medical History (Updated 01/19/24 @ 09:33 by Markus Mora) Abnormal CBC Surgical History Hx of removal of ovary History of hysterectomy Family History Father Depression Mental health disorder Mother HTN (hypertension) Sister Mental health disorder Sister Depression Social History (Updated 11/08/23 @ 11:04 by Chad Vaughn [facility]) Housing: House Alcohol intake: current Alcohol intake frequency: a few times a month Patient Tobacco Use Status: Never used Tobacco e-Cigarette/Vaping Use: Never Used Second Hand Smoke Exposure: No service: No Current occupational status: employed and retired 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 How many drinks containing alcohol do you have on a typical day when you are drinking?: 1 or 2 3. How often do you have six or more drinks on one occasion?: Never Total Score: 0 NAOMY-7 AMB Questionnaire NAOMY-7 Date NAOMY - 7 assessed: 11/08/23 Source: Developed by Drs. Phil Gross, Kacie Us, Ryan Burden and colleagues, with an educational scout from [employer]. Physical exam (Primary Care) Tobacco/Smoking Status: Tobacco use Status Tobacco use date assessed 11/08/23 01/19/24 09:06 Patient Tobacco Use Status Never used Tobacco 01/19/24 09:06 e-Cigarette/Vaping Use Never Used 01/19/24 09:06 Thrive Assessment: Date of Thrive Assessment Date Thrive assessed 11/08/23 01/19/24 09:06 Telehealth Telehealth Telehealth Platform: Telephone Location of provider rendering services: practice address Location of patient: address on file Patient Identification confirmed using: Name, : Yes Telehealth method: voice only Patient verbally consented to treatment: Yes Patient verbally consented to billing insurance company: Yes Patient informed of any privacy concerns related to visit: Yes Minutes spent on Phone/Video with Pt.: 8 Coding Level of Care Code Tele Est Pt Level 2 (53795) Diagnoses Leukopenia D72.819 Macrocytosis D75.89 Elevated LDL cholesterol level E78.00 Assessment & Plan Assessment & Plan (1) Leukopenia: Code(s): D72.819 - Decreased white blood cell count, unspecified Category: Medical Plan: Mild?longstanding?leukopenia?and?this?improved?towards?normal?with?reduction?in? alcohol?intake Encouraged?her?to?continue?moderation. (2) Macrocytosis: Code(s): D75.89 - Other specified diseases of blood and blood-forming organs Category: Medical Plan: As?above,?improved?with?decrease?in?alcohol?intake?and?encouraged?ongoing?modera tion (3) Elevated LDL cholesterol level: Code(s): E78.00 - Pure hypercholesterolemia, unspecified Category: Medical Plan: Still?has?ongoing?elevated?LDL?cholesterol?despite?using?Zetia. She?says?that?she?had?read?about?a?statin?medication?that?was?mo re?effective?in?women.??She?does?not?recall?what?the?medication?was?but?would?li ke?to?discuss?with?me?at?a?subsequent?visit. He?will?let?know?what?she?was?interested?in?and?we?can?consider?this. Will?recheck?lipids?in?about?4?months Orders: Orders Comprehensive [place]. Panel Fast Today E78.00 - Pure hypercholesterolemia, unspecified, Z00.00 - Encounter for general adult medical examination without abnormal findings Lipid Panel Today E78.00 - Pure hypercholesterolemia, unspecified, Z00.00 - Encounter for general adult medical examination without abnormal findings
== END ==
LOC: HO.HMCFM 09:10
PROVIDERS: PCP Family Medicine; Visit Provider Family Medicine
DX: D72.819 Decreased white blood cell count, unspecified (principal); D75.89 Other specified diseases of blood and blood-forming organs; E78.00 Pure hypercholesterolemia, unspecified

== ENCOUNTER 2024-01-29 10:21 | Outpatient (AMB) | payer MEDICARE, SELFPAY ==
--- NOTE | 2024-01-29 12:08 | AM.OFFWIN_ITS ---
Intake Vital Signs 01/29/24 12:09 Height 5 ft 4 in Weight 167 lb BMI 28.7 BP 130/68 Blood Pressure Location Lt brachial Position Sitting Pulse 62 Pulse Source Pulse Oximeter Temp 98.1 F Temp Source Oral Pulse Oximetry (%) 97 Oxygen Delivery Method Room Air Intake Visit Reasons: EP congestion, cough Intake Note: Pt is here today c/o chest congestion and a cough x14 days Patient Tobacco Use Status: Never used Tobacco Allergies poison crystal extract [POISON CRYSTAL] Allergy (Unknown, Verified 03/08/24 15:23) RASH, SWELLING HPI EP congestion, cough HPI Details Patient is a 73-year-old female with a history of leukopenia who comes to the walk-in clinic complaining of chest congestion and a cough for about 2 weeks now. She is already starting to feel better, as initially she had sore throat, fever chills and body aches with lethargy. She had tested negative for COVID initially, and thought it was possible it was influenza. She does have her flu and COVID vaccines. She reports that she overall is just having a productive cough mostly at night that keeps her awake. Initially was dry, but now she is developing a little bit of phlegm since she started Mucinex. She is worried more overall about if she is contagious to her mother at this point with her persistant cough, as she needs to help her in the upcoming weeks. No report of fever or chills, nausea vomiting or diarrhea, chest pain or shortness of breath, weakness or dizziness, lethargy or malaise, myalgias, sore throat, sinus pressure, headache, or other significant symptoms. 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 Current occupational exposures/hazards: No Cognitive needs: No Hearing needs: No Vision needs: Yes (glasses) Review of Systems Const All systems reviewed & are unremarkable except as noted in HPI and below Physical Exam Vital Signs: Last Vital Signs Temp 98.1 F 01/29/24 12:09 Pulse 62 01/29/24 12:09 BP 130/68 01/29/24 12:09 Pulse Ox 97 01/29/24 12:09 Oxygen Delivery Method Room Air 01/29/24 12:09 BMI result Body Mass Index 28.7 Const General: cooperative, healthy appearing, comfortable, no acute distress, alert, awake, Physically active and well groomed; No anxious, diaphoretic, ill appearing, intoxicated appearing, poor hygiene or tired appearing Nutritional Appearance: average body habitus HEENT Head: Yes normal to inspection, Yes normocephalic and Yes atraumatic Ears: hearing grossly normal bilaterally, external ears normal, TM's normal bilaterally and EAC's normal General nose exam: Normal external nose present, Normal nares present, No nasal polyps present, Normal nasal mucous membranes and turbinates present, Normal septum present and No nasal discharge present Face and sinus: Yes normal facial exam, Yes sinuses nontender and Yes face symmetric Mouth: Normal oral and palatal mucosa present, lip normal and tongue normal Throat: Yes posterior oropharynx normal, Yes abnormal tonsil (mildly erythematous bilaterally), No peritonsillar mass, No postnasal drainage, No uvular edema and No cobblestoning Eyes General: appearance normal, both eyes and all related structures Neck Neck: Yes normal visual inspection, Yes full ROM, Yes no lymphadenopathy, Yes trachea midline, Yes supple and No anterior neck swelling Chest Chest palpation & inspection: normal palpation of entire chest wall Resp Effort & Inspection: normal respiratory effort, able to speak in complete sentences, no audible wheezes, no cough, no grunting, not labored, no nasal flaring, no retractions and symmetric chest movement Auscultation: clear to auscultation bilaterally, no crackles, no rales, no rhonchi, no wheezes, lung sounds not diminished and No rub present Cardio Palpation: normal PMI Rate: regular rate Rhythm: regular rhythm Heart sounds: S1 normal heart sound present and S2 normal heart sound present Skin Other: Good color, warm and dry Psych Appearance: grossly normal Mental Status: mental status grossly normal Speech and movement: Normal speech and movement present Affect: normal affect Attitude: cooperative Thought process: Normal thought process present Insight: Good insight present (Psych) Judgement: Good judgement present (Psych) Assessment & Plan Assessment & Plan (1) Tracheobronchitis: Code(s): J40 - Bronchitis, not specified as acute or chronic Plan: Patient is a 73-year-old female with history of leukopenia who comes to the walk-in clinic after 2 weeks of viral respiratory symptoms, and now complaining of mildly persistent chest congestion and productive cough. She reports she is feeling better, but is concerned about being contagious to her mother who is elderly and will be needing help from her in the upcoming weeks. Pending flu COVID and RSV results. Overall she is stable and mostly unremarkable on exam today, but complains that at night she has a reactive cough that keeps her up. Some relief with Mucinex, which has helped with some productive phlegm. She states that overall she is starting to feel better though, as myalgias and malaise have improved. Lung sounds are clear and I do not suspect pneumonia for her. I will write her for Marleni Patel, and if they do not relieve her symptoms she can do a short course of prednisone 40 mg for 5 days. She will continue with the Mucinex and adequate water intake also. She knows to follow up if symptoms persist or worsen, or go to the emergency department with worrisome symptoms. Plan Pt is here today c/o chest congestion and a cough x14 days Orders: Orders SARS-CoV2/FLU/RSV 01/29/24 J06.9 - Acute upper respiratory infection, unspecified Medications: New benzonatate 200 mg PO BID-TID PRN 30 caps 0RF cough prednisone 40 mg (2 x 20 mg) PO DAILY 10 tabs 0RF 5 days Coding Level of Care Code Est Pt Level 4 (82119) Diagnoses Tracheobronchitis J40
[2024-01-29 12:09] VITALS: BP 130/68; PULSE 62; TEMP 36.7; O2SAT 97; BMI 28.7
== END 2024-01-29 13:26 | disposition home or self-care (01) ==
PROVIDERS: PCP Family Medicine; Visit Provider Physician Assistant Medical
DX: J40 Bronchitis, not specified as acute or chronic (principal)

== ENCOUNTER 2024-01-29 10:21 | Outpatient (REF) | payer MEDICARE, SELFPAY ==
[2024-01-29 15:56] LABS: Influenza A PCR NEGATIVE (Negative); Influenza B PCR NEGATIVE (Negative); Resp Syncy Virus RNA Qual PCR NEGATIVE (Negative); SARS COV2 PCR INHOUSE NEGATIVE (Negative)
== END 2024-01-29 10:22 | disposition home or self-care (01) ==
LOC: HO.LAB 10:21
PROVIDERS: PCP Family Medicine; Visit Provider Physician Assistant Medical
DX: J06.9 Acute upper respiratory infection, unspecified (principal)
CPT/HCPCS: 0241U

== ENCOUNTER 2024-03-08 15:08 | Outpatient (AMB) | payer MEDICARE, SELFPAY ==
--- NOTE | 2024-03-08 15:09 | A.OFFVIS_ITS ---
Vital Signs 03/08/24 15:11 Height 5 ft 4 in Weight 167 lb 1.766 oz BMI 28.7 BP 136/64 Blood Pressure Location Lt brachial Position Sitting Pulse 72 Pulse Source Pulse Oximeter Pulse Oximetry (%) 96 Oxygen Delivery Method Room Air Intake Visit Reasons: Yareli Dangelo Constipation Intake Note: ESTABLISHED PATIENT Reason; SHRUTHI Pt. Re est. Seen ~ 8 mos ago. [facility] Changes/concerns? No concerns per pt. Pt has made dietary changes (grape nuts, raisin bran, etc.) which has been helping, in addition to the colace. Allergies poison atnya extract [POISON TANYA] Allergy (Unknown, Verified 03/08/24 15:23) RASH, SWELLING HPI HPI Yareli Pierson Constipation: Details: LAST VISIT WITH SHRUTHI Details: A 73 y/o female referred with constipation--she had 2 bouts of constipation-she has since taking stool softener- she says that helped a lot- she just feels she could go more-however she has not had any further constipation Colonoscopy 2017-no issues she took miralax with excellent response-she has not had any further issues, she feels she is well managed She eats s fruit and yogurt- she admits she does not eat fiber No nausea, vomiting, abdominal pain, hematemesis, hematochezia fever or chills TODAY'S VISIT This patient is here today for follow-up. Patient has been managed previously by Kanwal Pena for constipation. Currently she reports that she is doing well. She has eats foods and vegetables, plenty fiber. Eats grape not, raisin bran. Patient reports that she is drinking plenty fluids. Currently little bit stressed out as her mom is sick and is under care of Cardiology. Patient is trying to care for her mother. Patient denies any GI concerning symptoms. Denies melena, hematochezia, unintentional weight loss or ribbon like stools. 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 Current occupational exposures/hazards: No Cognitive needs: No Hearing needs: No Vision needs: Yes (glasses) Review of Systems Const Denies weight gain and Denies weight loss ENT Reports no additional complaints, Denies dysphagia and Denies odynophagia Card Reports no additional complaints Resp Reports no additional complaints GI Denies abdominal pain, Denies belching, Denies melena, Denies bloating, Denies change in bowel habits, Denies dysphagia, Denies excessive flatus, Denies dyspepsia, Denies heartburn, Denies diarrhea, Denies loose stools, Denies nausea, Denies odynophagia and Denies vomiting Musc Reports no additional complaints Neuro Reports no additional complaints Psych Reports no additional complaints Endo Reports no additional complaints Physical Exam Vital Signs: Last Vital Signs Pulse 72 03/08/24 15:11 BP 136/64 03/08/24 15:11 Pulse Ox 96 03/08/24 15:11 Oxygen Delivery Method Room Air 03/08/24 15:11 BMI result Body Mass Index 28.7 Const General: healthy appearing, no acute distress and well developed Nutritional Appearance: well nourished Orientation/consciousness: patient oriented x3 Resp Effort & Inspection: normal respiratory effort, able to speak in complete sentences, no tracheal deviation and symmetric chest movement Auscultation: clear to auscultation bilaterally Cardio Rate: regular rate GI Inspection: Yes normal to inspection and No distended Palpation (GI): Soft to palpation, not firm, nontender and No hepatosplenomegaly present Auscultation: normal bowel sounds General: Yes no CVA tenderness Back/Spine/Pelvis Back: no CVA tenderness Skin General skin exam: elasticity normal, turgor normal and dry skin Neuro General: patient oriented x3 Psych Appearance: grossly normal Mental Status: mental status grossly normal Assessment & Plan Assessment & Plan (1) Constipation: Code(s): K59.00 - Constipation, unspecified Category: Medical Qualifiers: Constipation type: slow transit constipation Qualified Code(s): K59.01 - Slow transit constipation Plan Patient will follow-up in our office as needed. She will call if she will have any GI concerning symptoms. Discussed diet, all patient's concerns were addressed in regards to high-fiber diet. Increase fluid intake and activity to promote better bowel motility. Patient is agreeable to this plan and verbalizes understanding of instructions. She was given the opportunity to ask questions and all questions answered. Thank you for allowing me to participate in her care Coding Level of Care Code Est Pt Level 3 (84104) Diagnoses Slow transit constipation K59.01 Constipation type: slow transit constipation Time Spent (min) 25 Comment 15 minutes spent with patient and additional 10 minutes spent reviewing her records
[2024-03-08 15:11] VITALS: BP 136/64; PULSE 72; O2SAT 96; BMI 28.7
== END 2024-03-08 16:36 | disposition home or self-care (01) ==
PROVIDERS: PCP Family Medicine; Visit Provider Nurse Practitioner Family
DX: K59.01 Slow transit constipation (principal)
CPT/HCPCS: 99213

== ENCOUNTER → 2024-03-08 15:08 | Outpatient (BNVA) | payer MEDICARE, SELFPAY | PROVIDERS: PCP Family Medicine; Visit Provider Nurse Practitioner Family | DX: K59.01 Slow transit constipation (principal) | CPT/HCPCS: 99212 ==

== ENCOUNTER 2024-05-26 07:45 | Outpatient (REF) | payer MEDICARE, SELFPAY ==
[2024-05-26 11:17] LABS: MANUAL DIFF FLAG NO
[2024-05-26 11:30] LABS: Basophils Percent Auto 0.4 % (0-2); Eosinophils Absolute Auto 0.2 X10*3/uL (0.0-0.4); Eosinophils Percent Auto 2.3 % (0-4); Hematocrit 38.1 % (37.0-47.0); Hemoglobin 12.8 g/dl (12.0-16.0); Imm Gran Abs Auto 0.01 X10*3/uL (0.00-0.03); Imm Gran Pct Auto 0.1 % (0.0-0.4); Lymphocytes Absolute Auto 1.3 X10*3/uL (1.2-4.9); Lymphocytes Percent Auto 18.9 % (20-40); Mean Corpuscular HGB Conc 33.6 g/dl (31.0-35.0); Mean Corpuscular Hemoglobin 33.4 pg (27.0-33.0); Mean Corpuscular Volume 99.5 fL (80.0-98.0); Mean Platelet Volume 10.8 fL (9.4-12.3); Monocytes Absolute Auto 0.8 X10*3/uL (0.1-1.2); Monocytes Percent Auto 10.7 % (2-11); Neutrophils Absolute Auto 4.8 x10*3/uL (2.0-8.3); Neutrophils Percent Auto 67.6 % (45-73); Platelet Count 219 X10*3/uL (160-400); Red Blood Count 3.83 X10*6/uL (4.20-5.50); Red Cell Distribution Width 13.4 % (11.0-16.0)
[2024-05-26 12:09] LABS: Alanine Aminotransferase 11 U/L (0-31); Albumin Level 3.9 g/dL (3.5-5.0); Alkaline Phosphatase 39 U/L (39-117); Anion Gap 11 (12-20); Aspartate Amino Transferase 20 U/L (5-31); Bilirubin Total 1.5 mg/dL (0.0-1.0); Blood Urea Nitrogen 17 mg/dL (9-16); Calcium 9.6 mg/dL (8.4-10.2); Carbon Dioxide 26 mmol/L (22-29); Chloride 106 mmol/L (96-108); Cholesterol 201 mg/dL (<200); Estimated Glomerular Filt Rate > 60; Glucose Fasting 94 mg/dL (60-99); Glucose Random 94 mg/dL (60-115); HDL Cholesterol 71 mg/dL (>40); LDL Cholesterol Calculated 106 mg/dL (<100); Potassium 3.8 mmol/L (3.3-5.1); Sodium 139 mmol/L (135-145); Total Protein 6.8 g/dL (6.5-8.0); Triglycerides 124 mg/dL (<150)
[2024-05-26 14:26] LABS: Appearance Urine Turbid; Color Urine Dark Yellow; Glucose Urine UA Negative (Negative); Leukocyte Esterase Urine Moderate (2+) (Negative); Nitrite Urine Negative (Negative); Specific Gravity - Urine >= 1.030 (1.005-1.025); UMIC TRIGGER UA YES; Urine Blood Negative (Negative); Urine Ketones 15 mg/dL (Negative); Urine Protein 30 (1+) mg/dL (Neg-Trace)
[2024-05-26 14:45] LABS: Bacteria Urine None Seen (None Seen); Hyaline Casts Urine 0-2 /LPF (0-2); RBC Urine 0-2 /HPF (0-2); WBC Urine 0-5 /HPF (0-5)
== END 2024-05-26 07:46 | disposition home or self-care (01) ==
LOC: HO.WFDLDS 07:45
PROVIDERS: Referring Provider Physician Assistant; Visit Provider Family Medicine
DX: Z00.00 Encounter for general adult medical examination without abnormal findings (principal); E78.00 Pure hypercholesterolemia, unspecified; K58.9 Irritable bowel syndrome, unspecified; K59.00 Constipation, unspecified; R10.9 Unspecified abdominal pain; A08.11 Acute gastroenteropathy due to Norwalk agent; R11.0 Nausea; I10 Essential (primary) hypertension
CPT/HCPCS: 36415; 80053; 80061; 81001; 85025; 99212

== ENCOUNTER 2024-05-26 12:03 | Outpatient (AMB) | payer MEDICARE, SELFPAY ==
--- NOTE | 2024-05-26 12:13 | MHC.PC.OV ---
Vital Signs 05/26/24 12:15 Height 5 ft 4 in Weight 160 lb 8 oz BMI 27.5 BP 126/68 Blood Pressure Location Rt brachial Position Sitting Respiration 14 Pulse 80 Pulse Source Pulse Oximeter Temp 98.3 F Temp Source Oral Pulse Oximetry (%) 96 Oxygen Delivery Method Room Air Intake Visit Reasons: f/u HLD Intake Note: follow up lab review with pcp Hall Clerk Required: No Allergies poison tanya extract [POISON TANYA] Allergy (Unknown, Verified 05/26/24 12:14) RASH, SWELLING Medication List - Last Reconciled 05/26/24 by Emery Souza MD docusate sodium (Stool Softener) 50 mg PO DAILY ezetimibe 10 mg PO DAILY 90 days lisinopril 20 mg (2 x 10 mg) PO DAILY 30 days Tobacco use date assessed: 11/08/23 Dental Screening Dental Screen Date: 11/08/23 HPI f/u HLD HPI Details 74 y/o female presents to /u [facility]. Labs drawn 05/26/24. Reviewed labs with pt. RBC mildly low at 3.83. Triglycerides 124. TC 201. LDL 106. HDL 71. She is on ezetimibe 10mg daily. Pt notes recent norovirus. Reports ongoing diarrhea/nausea. She notes she is afraid to drink water as she feels it will go through her body. 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 1. Little interest or pleasure in doing things: not at all 2. Feeling down, depressed, or hopeless: not at all 3. Trouble falling or staying asleep, or sleeping too much: not at all 4. Feeling tired or having little energy: not at all 5. Poor appetite or overeating: nearly every day 6. Feeling bad about yourself - or that you are a failure or have let yourself or your family down: not at all 7. Trouble concentrating on things, such as reading the newspaper or watching television: not at all 8. Moving or speaking so slowly that other people could have noticed. Or the opposite - being so fidgety or restless that you have been moving around a lot more than usual: not at all 9. Thoughts that you would be better off or of hurting yourself in some way: not at all Total score: 3 Source: Developed by Drs. Phil Gross, Kacie Us, Ryan Burden and colleagues, with an educational scout from [employer]. Thrive Questionnaire Date Thrive assessed: 11/08/23 I am a: Patient What is your living situation today?: I have a steady place to live Within the past 12 months, did the food you bought not last and you didn't have the money to get more?: Never true Within the past 12 months, did you worry whether your food would run out before you got money to buy more?: Never true Do you have trouble paying for medicines?: No Do you have trouble getting transportation to medical appointments?: No Do you have trouble paying your heating and electricity bill?: No Do you have trouble taking care of your child, family member or friend?: No Do you have trouble with day-to-day activities such as bathing, preparing meals, shopping, managing finances, etc.?: No Are you currently unemployed and looking for a job?: No Are you interested in more education?: No Please select the resources that you would like help with: None Currently or been in a relationship where the following occur: No concerns reported THRIVE Score: 0 AUDIT C Alcohol Use Questionnaire (AUDIT-C) 1. How often do you have a drink containing alcohol?: 2-3 times a week 2. How many drinks containing alcohol do you have on a typical day when you are drinking?: 1 or 2 3. How often do you have six or more drinks on one occasion?: Never Total Score: 3 NAOMY-7 AMB Questionnaire NAOMY-7 Date NAOMY - 7 assessed: 11/08/23 Feeling nervous, anxious, or on edge: 1 = Several days Not being able to stop or control worryin = Several days Worrying too much about different things: 1 = Several days Trouble relaxin = Several days Being so restless that it is hard to sit still: 0 = Not at all Becoming easily annoyed or irritable: 0 = Not at all Feeling afraid as if something awful might happen: 1 = Several days Total NAOMY-7 score (0-4 normal; 5-9 mild; 10-14 moderate; 15-21 severe): 5 Source: Developed by Drs. Phil Gross, Kacie Us, Ryan Burden and colleagues, with an educational scout from [employer]. Review of Systems Const Denies chills, Denies fatigue, Denies fever(s), Denies headache(s) and Denies weakness ENT Denies dizziness and Denies headache(s) Card Denies dyspnea Resp Denies cough, Denies dyspnea, Denies wheezing and Denies other (shortness of breath) GI Reports diarrhea and Reports nausea Musc Denies numbness and Denies tingling Neuro Denies dizziness, Denies headache(s), Denies numbness, Denies tingling and Denies weakness Psych Denies anxiety and Denies depression Endo Denies fatigue Aller/Immun Denies wheezing Physical exam (Primary Care) Vital Signs: Last Vital Signs Temp 98.3 F 05/26/24 12:15 Pulse 80 05/26/24 12:15 Resp 14 05/26/24 12:15 BP 126/68 05/26/24 12:15 Pulse Ox 96 05/26/24 12:15 Oxygen Delivery Method Room Air 05/26/24 12:15 BMI result Body Mass Index 27.5 Tobacco/Smoking Status: Tobacco use Status Tobacco use date assessed 11/08/23 05/26/24 12:18 Patient Tobacco Use Status Never used Tobacco 05/26/24 12:18 e-Cigarette/Vaping Use Never Used 05/26/24 12:18 PHQ-9: PHQ-9 Score PHQ-9: Total score 3 05/26/24 12:34 Thrive Assessment: Date of Thrive Assessment Date Thrive assessed 11/08/23 05/26/24 12:18 Currently or been in a relationship where the following occur: No concerns reported Const General: well developed; No acute distress Nutritional Appearance: well nourished Orientation/consciousness: patient oriented x3 HENMT Head: Yes normocephalic and Yes atraumatic Eyes General: appearance normal, both eyes and all related structures Pupils: Equal, round and reactive pupils present EOM: EOMs intact bilaterally Resp Effort & Inspection: normal respiratory effort Auscultation: clear to auscultation bilaterally Cardio Rate: regular rate Rhythm: regular rhythm Heart sounds: S1 normal heart sound present, S2 normal heart sound present, no gallops, no murmurs and no rubs Neuro General: patient oriented x3 and gait normal Cranial nerves: Yes Equal, round and reactive pupils present Psych Affect: normal affect Coding Level of Care Code Est Pt Level 4 (11373) Diagnoses Hypercholesterolemia E78.00 HTN (hypertension) I10 Norovirus A08.11 Nausea R11.0 Assessment & Plan Assessment & Plan (1) Hypercholesterolemia: Code(s): E78.00 - Pure hypercholesterolemia, unspecified Category: Medical Plan: Lipids?much?improved.??LDL?now?nearly?at?goal?of?less?than?100 HDL?is?good Continue?working?on?diet?low?in?saturated?fats?and?cholesterol.??Continue?Zetia Will?continue?to?monitor (2) HTN (hypertension): Code(s): I10 - Essential (primary) hypertension Category: Medical Plan: Blood?pressure?is?controlled.??Goal?is?less?than?140/90 Continue?lisinopril?as?prescribed (3) Norovirus: Code(s): A08.11 - Acute gastroenteropathy due to [place] agent Category: Medical Plan: Recent?likely?normal?virus?infection?with?severe?diarrhea,?abdominal?discomfort?and?some?nausea. Patient?has?been decreasing?her?water?intake. Advised?her?to?in?fact?increase?her?water?intake?significantly to?offset?losses?and?decrease?dehydration. Will?give?her?a?small?course?of?Zofran?help?nausea. Go?to?ED?if?unable?to?keep?up?with?hydration needs. (4) Nausea: Code(s): R11.0 - Nausea Category: Medical Plan: As?above Medications: New ondansetron 4 mg PO DAILY PRN 7 tabs 0RF nausea and vomiting 7 days
[2024-05-26 12:15] VITALS: BP 126/68; PULSE 80; RESP 14; TEMP 36.8; O2SAT 96; BMI 27.5
== END 2024-05-26 12:46 | disposition home or self-care (01) ==
LOC: HO.HMCFM 12:04
PROVIDERS: PCP Family Medicine; Visit Provider Family Medicine
DX: E78.00 Pure hypercholesterolemia, unspecified (principal); I10 Essential (primary) hypertension; A08.11 Acute gastroenteropathy due to Norwalk agent; R11.0 Nausea

== ENCOUNTER 2024-07-11 13:31 | Outpatient (AMB) | payer MEDICARE, SELFPAY ==
[2024-07-11 13:36] VITALS: BP 128/68; PULSE 78; TEMP 36.6; O2SAT 97; BMI 27.5
--- NOTE | 2024-07-11 13:36 | MHC.OFFWIV ---
Intake Vital Signs 07/11/24 13:36 Height 5 ft 4 in Weight 160 lb BMI 27.5 BP 128/68 Blood Pressure Location Rt brachial Position Sitting Pulse 78 Pulse Source Pulse Oximeter Temp 97.9 F Temp Source Oral Pulse Oximetry (%) 97 Intake Visit Reasons: EP tick bite on LT arm Patient Tobacco Use Status: Never used Tobacco Allergies poison crystal extract [POISON CRYSTAL] Allergy (Unknown, Verified 07/11/24 13:36) RASH, SWELLING Do you need a note to return to daycare/school/sports/work: No HPI HPI Comments History of Present Illness Details History of Present Illness - The patient is a 74-year-old female presenting with a tick bite that she believes happened yesterday. It became noticeable due to tenderness and a bump. Her removed the tick, leaving a small amount of blood visible. She noted the area was warm, though not excessively so. Patient has brought the tick with her today. Denies fevers, joint pain or rashes. Physical Exam General: Cooperative, healthy appearing, comfortable, no acute distress and well developed Orientation: Patient oriented x3 Limitations: No limitations Head: Normal to inspection Ears: Hearing grossly normal bilaterally Nose: Normal External nose present Face and sinus: Normal facial exam Eyes: Appearance normal, both eyes and all related structures Neck: Normal visual inspection and Yes full ROM Respiratory: Normal respiratory effort and able to speak in complete sentences. Skin: slightly warm and erythematous 1cm round area with central darkening. No drainage. 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 Current occupational exposures/hazards: No Cognitive needs: No Hearing needs: No Vision needs: Yes (glasses) Review of Systems Const All systems reviewed & are unremarkable except as noted in HPI and below Physical Exam Vital Signs: Last Vital Signs Temp 97.9 F 07/11/24 13:36 Pulse 78 07/11/24 13:36 BP 128/68 07/11/24 13:36 Pulse Ox 97 07/11/24 13:36 BMI result Body Mass Index 27.5 Assessment & Plan Assessment & Plan (1) Tick bite: Code(s): W57.XXXA - Bitten or stung by nonvenomous insect and other nonvenomous arthropods, initial encounter Qualifiers: Encounter type: initial encounter Site of tick bite: upper arm Laterality: left Qualified Code(s): S40.862A - Insect bite (nonvenomous) of left upper arm, initial encounter; W57.XXXA - Bitten or stung by nonvenomous insect and other nonvenomous arthropods, initial encounter Plan: Plan A prescribed single dose of 200 mg doxycycline will be utilized for Lyme disease prophylaxis, given the recent tick bite and within the appropriate prophylactic window. Cephalexin has been prescribed to manage potential cellulitis should symptoms worsen, unclear if hypersensitivity reaction vs cellulitis starting on the right upper arm. I have marked the area and dated it. The patient is advised to monitor for increased redness and tenderness or other signs of infection needing further medical intervention. Immediate instructions concerning symptoms of erythema migrans rash, fevers or joint pain associated with Lyme disease were provided, to ensure any symptomatic escalation is promptly addressed. Prescription orders have been communicated to the pharmacy and coordination with her primary care physician will support follow-up care if needed. Patient was informed and verbally consented to the use of an ambient scribe for clinic note documentation during this visit. Medications: New doxycycline hyclate 200 mg (2 x 100 mg) PO once 2 tabs 0RF tick bite ppx cephalexin 500 mg PO Q6H 28 caps 0RF Coding Level of Care Code Est Pt Level 3 (17934) Diagnoses Tick bite of left upper arm, initial encounter S40.862A; W57.XXXA Encounter type: initial encounter Site of tick bite: upper arm Laterality: left
== END 2024-07-11 14:35 | disposition home or self-care (01) ==
PROVIDERS: PCP Family Medicine; Visit Provider Physician Assistant
DX: S40.862A Insect bite (nonvenomous) of left upper arm, initial encounter (principal); W57.XXXA Bitten or stung by nonvenomous insect and other nonvenomous arthropods, initial encounter

== ENCOUNTER → 2024-07-11 13:31 | Outpatient (BNVA) | payer MEDICARE, SELFPAY | PROVIDERS: PCP Family Medicine; Visit Provider Physician Assistant | DX: S40.862A Insect bite (nonvenomous) of left upper arm, initial encounter (principal); W57.XXXA Bitten or stung by nonvenomous insect and other nonvenomous arthropods, initial encounter | CPT/HCPCS: 99212 ==

== ENCOUNTER 2024-08-30 08:17 | Outpatient (AMB) | payer MEDICARE, SELFPAY ==
--- NOTE | 2024-08-30 08:32 | A.OFFPC_ITS ---
Vital Signs 08/30/24 08:36 Height 5 ft 4 in Weight 165 lb BMI 28.3 BP 112/66 Blood Pressure Location Rt brachial Position Sitting Respiration 14 Pulse 79 Pulse Source Pulse Oximeter Temp 97.6 F Temp Source Temporal Artery Scan Pulse Oximetry (%) 96 Oxygen Delivery Method Room Air Intake Visit Reasons: f/u HTN Intake Note: Nancy presents in the office today for a follow up to hypertension. Allergies poison crystal extract (POISON CRYSTAL) Allergy (Unknown, Verified 08/30/24 08:34) RASH, SWELLING Medication List - Last Reconciled 08/30/24 by Emery Souza MD docusate sodium (Stool Softener) 50 mg PO DAILY ezetimibe 10 mg PO DAILY 90 days lisinopril 20 mg (2 x 10 mg) PO DAILY 30 days ondansetron 4 mg PO DAILY PRN 7 days Tobacco use date assessed: 08/30/24 Fall risk assessment: No Falls in past year Last assessed Fall Risk: 08/30/24 Dental Screening Dental Screen Date: 08/30/24 Did you have a dental visit in the last 12 months?: Yes Did you have a dental problem in the last 6 months where you did not have access to dental care?: No Was dental information given to patient?: Patient has dentist HPI f/u HTN HPI Details 74 y/o female presents to f/u HTN. Blood pressure today 112/66, 79p. She is on lisinopril 20mg daily. HPI Comments History of Present Illness Details Documentation assistance for Emery Souza MD, was provided by Markus Mora,? Department Administrator on 08/30/2024 at 8:48 AM EST. [place], Dr. Souza, have read, observed, and verified documentation. ?? PFSH Medical History Abnormal CBC Surgical History Hx of removal of ovary History of hysterectomy Family History Father Depression Mental health disorder Mother HTN (hypertension) Sister Mental health disorder Sister Depression Social History (Updated 08/30/24 @ 08:36 by Neelima Lewis MA) Housing: House Alcohol intake: current Alcohol intake frequency: a few times a month Patient Tobacco Use Status: Never used Tobacco e-Cigarette/Vaping Use: Never Used Second Hand Smoke Exposure: No Use of substances other than those prescribed or required for medical reasons: No service: No Current occupational status: employed and retired 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, 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 Current occupational exposures/hazards: No Cognitive needs: No Hearing needs: No Vision needs: Yes (glasses) Questionnaire Thrive Questionnaire Date Thrive assessed: 05/19/24 I am a: Patient What is your living situation today?: I have a steady place to live Within the past 12 months, did the food you bought not last and you didn't have the money to get more?: Never true Within the past 12 months, did you worry whether your food would run out before you got money to buy more?: Never true Do you have trouble paying for medicines?: No Do you have trouble getting transportation to medical appointments?: No Do you have trouble paying your heating and electricity bill?: No Do you have trouble taking care of your child, family member or friend?: No Do you have trouble with day-to-day activities such as bathing, preparing meals, shopping, managing finances, etc.?: No Are you currently unemployed and looking for a job?: No Are you interested in more education?: No Please select the resources that you would like help with: None Currently or been in a relationship where the following occur: No concerns reported THRIVE Score: 0 NAOMY-7 AMB Questionnaire NAOMY-7 Date NAOMY - 7 assessed: 11/08/23 Source: Developed by Drs. Phil Gross, Kacie Us, Ryan Burden and colleagues, with an educational scout from [employer]. Review of Systems Const Denies chills, Denies fatigue, Denies fever(s), Denies headache(s) and Denies weakness ENT Denies dizziness and Denies headache(s) Card Denies dyspnea Resp Denies cough, Denies dyspnea, Denies wheezing and Denies other (shortness of breath) Musc Denies numbness and Denies tingling Neuro Denies dizziness, Denies headache(s), Denies numbness, Denies tingling and Denies weakness Psych Denies anxiety and Denies depression Endo Denies fatigue Aller/Immun Denies wheezing Physical exam (Primary Care) Vital Signs: Last Vital Signs Temp 97.6 F 08/30/24 08:36 Pulse 79 08/30/24 08:36 Resp 14 08/30/24 08:36 BP 112/66 08/30/24 08:36 Pulse Ox 96 08/30/24 08:36 Oxygen Delivery Method Room Air 08/30/24 08:36 BMI result Body Mass Index 28.3 Tobacco/Smoking Status: Tobacco use Status Tobacco use date assessed 08/30/24 08/30/24 08:36 Patient Tobacco Use Status Never used Tobacco 08/30/24 08:36 e-Cigarette/Vaping Use Never Used 08/30/24 08:36 Thrive Assessment: Date of Thrive Assessment Date Thrive assessed 05/19/24 08/30/24 08:33 Currently or been in a relationship where the following occur: No concerns reported Const General: well developed; No acute distress Nutritional Appearance: well nourished Orientation/consciousness: patient oriented x3 HENMT Head: Yes normocephalic and Yes atraumatic Eyes General: appearance normal, both eyes and all related structures Pupils: Equal, round and reactive pupils present EOM: EOMs intact bilaterally Resp Effort & Inspection: normal respiratory effort Neuro General: patient oriented x3 and gait normal Cranial nerves: Yes Equal, round and reactive pupils present Psych Affect: normal affect Coding Level of Care Code Est Pt Level 3 (39996) Diagnoses HTN (hypertension) I10 Elevated LDL cholesterol level E78.00 Assessment & Plan Assessment & Plan (1) HTN (hypertension): Code(s): I10 - Essential (primary) hypertension Category: Medical Plan: Blood?pressure?is?well?controlled.??Goal?is?less?than?140/90 Continue?current?medication (2) Elevated LDL cholesterol level: Code(s): E78.00 - Pure hypercholesterolemia, unspecified Category: Medical Plan: Tolerating?Zetia?well. She?had?significant?improvements?on?his?medication?at?her?last?check Will?repeat?lipids?with?her?upcoming?pre?physical?labs?and?review?in?October Orders: Orders Comprehensive [place]. Panel Fast Today Z00.00 - Encounter for general adult medical examination without abnormal findings Lipid Panel Today Z00.00 - Encounter for general adult medical examination without abnormal findings Microalbumin, Random (w Creat) Today I10 - Essential (primary) hypertension UA CC w/rflx Micro + Cult Today Z00.00 - Encounter for general adult medical examination without abnormal findings Complete Blood Count Auto Diff Today Z00.00 - Encounter for general adult medical examination without abnormal findings TSH reflex Free T4 Today Z00.00 - Encounter for general adult medical examination without abnormal findings
[2024-08-30 08:36] VITALS: BP 112/66; PULSE 79; RESP 14; TEMP 36.4; O2SAT 96; BMI 28.3
== END 2024-08-30 08:53 | disposition home or self-care (01) ==
LOC: HO.HMCFM 08:18
PROVIDERS: PCP Family Medicine; Visit Provider Family Medicine
DX: I10 Essential (primary) hypertension (principal); E78.00 Pure hypercholesterolemia, unspecified

== ENCOUNTER → 2024-08-30 08:17 | Outpatient (BNVA) | payer MEDICARE, SELFPAY | PROVIDERS: PCP Family Medicine; Visit Provider Family Medicine | DX: I10 Essential (primary) hypertension (principal); E78.00 Pure hypercholesterolemia, unspecified | CPT/HCPCS: 99212 ==

== ENCOUNTER 2024-11-07 08:14 | Outpatient (REF) | payer MEDICARE, SELFPAY ==
--- OUTSIDE RECORDS SUMMARY | 2024-11-07 09:08 | XMS_ITS | Encounter Summary ---
Author Organization [facility] Address [address] [place] [phone] Phone Care Team Providers Care Cut Plug Packer Name Role Phone Emery Souza MD Primary Care Provider Encounter Details Date Type Department Care Team (Late st Contact Info) Description 12/05/2020 Procedure Pass [facility], [address] [address] Social History Tobacco Use Types Packs/Day Years Used Date Smoking Tobacco: Never Assessed Comments No Sex and Gender Information Value Date Recorded Sex Assigned at Female 07/10/2021 8:37 PM EDT Legal Sex Female 10:00 PM EDT Gender Identity Female 07/10/2021 8:37 PM EDT Sexual Orientation Straight 07/10/2021 8: 37 PM EDT documented as of this encounter Plan of Treatment Not on file documented as of this encounter Visit Diagnoses Not on filedocumented in this encounter Care Teams Cut Plug Packer Relationship Specialty Start Date End Date Emery Souza MD [address] [place] [address] PCP - General 12/05/20 documented as of this encounter Additional Source Comments The information contained in this document represents components of the legal health record. It is not the complete legal health record.[facility]
--- OUTSIDE RECORDS SUMMARY | 2024-11-07 09:08 | XMS_ITS | Encounter Summary ---
Author Organization [facility] Address [address] [place] [address] Phone Care Team Providers Care Arts And Crafts Instructor Name Role Phone Albert Gill DO Primary Care Provider [phone] Martine Geller MD, MPH Primary Care Provid er Pcp, Unknown Primary Care Provider Emery Segovia MD Primary Care Provider Encounter Details Date Type Department Care Team (Late st Contact Info) Description 12/20/2017 Ancillary Orders Virtual Department [address] [place] [address] Albert Gill, DO [address] [place] [address] Breast screening Social History Tobacco Use Types Packs/Day Years Used Date Smoking Tobacco: Never Assessed Comments Unknown Sex and Gender Information Value Date Recorded Sex Assigned at Female 07/10/2021 8:37 PM EDT Legal Sex Female 10:00 PM EDT Gender Identity Female 07/10/2021 8:37 PM EDT Sexual Orientation Straight 07/10/2021 8: 37 PM EDT documented as of this encounter Plan of Treatment Not on file documented as of this encounter Results * BI MAMMOGRAM SCREENING WITH TOMOSYNTHESIS WITH CAD (BILATERAL) (01/25/2018 1:49 PM EST) Anatomical Region Laterality Modality Breast Left, Breast Right, Breast Bilateral Bila teral Mammography 01/26/2018 12:5 9 AM EST Impressions 01/26/2018 1:13 AM EST No mammographic evidence of malignancy. RECOMMENDED FOLLOWUP: Routine screening mammography is recommended, as clinically appropriate. The results will be sent to the patient. BI-RADS CATEGORY: 1 - Negative. BREAST DENSITY: There are scattered fibroglandular densities. POS - CDHMAMA Narrative 01/26/2018 1:13 AM EST BI MAMMOGRAM SCREENING WITH TOMOSYNTHESIS WITH CAD (BILATERAL) HISTORY: Screening. COMPARISON: Prior studies 10/29/2016 and dating back to 2011. TECHNIQUE: Digital breast tomosynthesis was performed in CC and MLO projections. Reconstructed 2-D C-views generated from the tomosynthesis images. Images interpreted in conjunction with R-2 Image Android Software Engineer computer-aided detection (CAD). FINDINGS: BREAST DENSITY: There are scattered fibroglandular densities. There are no suspicious masses, suspicious areas of architectural distortion or suspicious clusters of microcalcifications. Procedure Note Lori Galvez MD - 01/26/2018 BI MAMMOGRAM SCREENING WITH TOMOSYNTHESIS WITH CAD (BILATERAL) HISTORY: Screening. COMPARISON: Prior studies 10/29/2016 and dating back to 2011. TECHNIQUE: Digital breast tomosynthesis was performed in CC and MLOprojections. Reconstructed 2-D C-views generated from the tomosynthesisimages. Images interpreted in conjunction with R-2 Image Checkercomputer-aided detection (CAD). FINDINGS: BREAST DENSITY: There are scattered fibroglandular densities. There are no suspicious masses, suspicious areas of architecturaldistortion or suspicious clusters of microcalcifications. IMPRESSION: No mammographic evidence of malignancy. RECOMMENDED FOLLOWUP: Routine screening mammography is recommended, asclinically appropriate. The results will be sent to the patient. BI-RADS CATEGORY: 1 - Negative. BREAST DENSITY: There are scattered fibroglandular densities. POS - CDHMAMA Albert Gill DO IMG MG EXAMS Final Resu lt documented in this encounter Visit Diagnoses Diagnosis Breast screening Breast screening, unspecified Breast screening Breast screening, unspecified documented in this encounter Care Teams Arts And Crafts Instructor Relationship Specialty Start Date End Date Albert Gill DO [address] [place] [address] PCP - General Internal Medicine 12/20/17 01/24/18 Martine Geller MD, MPH [address] [address] [email or web address] PCP - General Family Medicine 01/25/18 10/13/20 Pcp, Unknown PCP - General 10/14/20 12/04/20 Emery Souza MD [address] [place] [id number] PCP - General 12/05/20 documented as of this encounter Additional Source Comments The information contained in this document represents components of the legal health record. It is not the complete legal health record.[facility]
--- OUTSIDE RECORDS SUMMARY | 2024-11-07 09:08 | XMS_ITS | Encounter Summary ---
Author Organization [facility] Address [address] [place] [address] Phone Care Team Providers Care Concrete Fence Builder Name Role Phone Emery Souza MD Primary Care Provider Encounter Details Date Type Department Care Team (Late st Contact Info) Description 10/21/2022 Procedure Pass [facility], [address] [address] Social History Tobacco Use Types Packs/Day Years Used Date Smoking Tobacco: Never Assessed Education Answer Date Recorded Are you interested in more education? Not on mat e 06/26/2022 Are you concerned about learning? Not on file 06/26/2022 No 06/26/2022 No 06/26/2022 Digital Access Answer Date Recorded No 07/25/2022 No 07/25/2022 Reliable internet access at home? Not on file 07/25/2022 Device with a working camera? Not on file Comments No Sex and Gender Information Value [...] on filedocumented in this encounter Care Teams Concrete Fence Builder Relationship Specialty Start Date End Date Emery Souza MD [address] [place] [address] PCP - General 12/05/20 documented as of this encounter Additional Source Comments The information contained in this document represents components of the legal health record. It is not the complete legal health record.[facility]
--- OUTSIDE RECORDS SUMMARY | 2024-11-07 09:08 | XMS_ITS | Clinical Summary ---
Author Organization [facility] Address [address] [place] [address] Phone Care Team Providers Care Market Development Trainer Name Role Phone Emery Souza MD Primary Care Provider Immunizations Immunization Administration Dates Next Due COVID-19 (Pre-12/21) Pfizer Vaccine, mRNA, PF ,05/04/2020 Family History Medical History Relation Comments Breast cancer Neg Hx Social History Tobacco Use Types Packs/Day Years [...] Orientation Straight 07/10/2021 8: 37 PM EDT Plan of Treatment Health Maintenance Due Date Last Done Comments Adult Td,Tdap Booster 1950 LIPID PANEL 1951 DEPRESSION SCREENING 1963 SMOKING Hx and SMOKELESS TOBACCO SCREENING 05/16/1964 HEPATITIS C SCREENING 05/16/1969 COLOGUARD 05/16/1996 COLONOSCOPY 05/16/1996 COLORECTAL CANCER SCREENING 05/16/1996 FIT TEST 05/16/1996 FOBT 05/16/1996 SIGMOIDOSCOPY 05/16/1996 VIRTUAL COLONOSCOPY 05/16/1996 PNEUMOCOCCAL VACCINES (50+ years) (1 of 1 - PCV) 05/16/2001 ZOSTER VACCINES (1 of 2) 05/16/2001 OSTEOPOROSIS SCREENING INITIAL (ONE-TIME) 05/16/2016 INFLUENZA VACCINE (#1) 2024 , 12/02/2018, 11/25/2017, Additional history exists COVID-19 VACCINE ( - season) 2024 05/25/2020, 05/04/2020 MAMMOGRAM 11/27/2024 11/27/2022, 11/29, 01/25/2018 RSV VACCINE (1 - 1-dose 75+ series) 05/16/2026 HEPATITIS A VACCINES Aged Out No long er eligible based on patient's age to complete this topic HIB VACCINES Aged Out No longer eligi ble based on patient's age to complete this topic MENINGOCOCCAL VACCINES (ACWY) Aged Out No longer eligible based on patient's age to complete this topic MENINGOCOCCAL VACCINES (B) Aged Out N o longer eligible based on patient's age to complete this topic Medical Devices Not on file Procedures Procedure Name Priority Date/Time Associated Diagnosis Comments BI MAMMOGRAM SCREENING WITH TOMOSYNTHESIS WITH CAD (BILATERAL) Routine 11/27/2022 11:25 AM EDT Breast screening from Last 3 Months or Most Recently Relevant to Health Maintenance Results * BI MAMMOGRAM SCREENING WITH TOMOSYNTHESIS WITH CAD (BILATERAL) (11/27/2022 11:25 AM EDT) Anatomical Region Laterality Modality Breast Left, Breast Right, Breast Bilateral Bila teral Mammography 12/03/2022 5:52 PM EDT Impressions 12/03/2022 5:54 PM EDT No findings suspicious for malignancy are identified. In the absence of a worrisome palpable abnormality, annual screening mammography is recommended. BI-RADS CATEGORY: 1 - Negative. DENSITY: There are scattered fibroglandular densities. Narrative 12/03/2022 5:54 PM EDT AVAILABLE COMPARISON: 12/09/2020 through 10/29/2016 Bilateral 3-D tomosynthesis with 2-D reconstructions in the CC and MLO projection. Computer-aided detection system was utilized. No new mass, asymmetry, architectural distortion or suspicious calcifications have become apparent in either breast. Procedure Note Huan Martinez MD - 12/03/2022 AVAILABLE COMPARISON: 12/09/2020 through 10/29/2016 Bilateral 3-D tomosynthesis with 2-D reconstructions in the CC and MLOprojection. Computer-aided detection system was utilized. No new mass, asymmetry, architectural distortion or suspiciouscalcifications have become apparent in either breast. IMPRESSION: No findings suspicious for malignancy are identified. In the absence of aworrisome palpable abnormality, annual screening mammography isrecommended. BI-RADS CATEGORY: 1 - Negative. DENSITY: There are scattered fibroglandular densities. Emery Souza MD IMG MG EXAMS Final R esult from Last 3 Months or Most Recently Relevant to Health Maintenance Insurance [employer] [place] [employer] [place] [employer] [place] [place] [employer] [place] [place] [employer] [place] [place] [employer] [place] [employer] [place] [employer] [place] [employer]AC[employer] Care Teams Market Development Trainer Relationship Specialty Start Date End Date Emery Souza MD [address] [place] [address] PCP - General 12/05/20 Additional Source Comments The information contained in this document represents components of the legal health record. It is not the complete legal health record.[facility]
--- OUTSIDE RECORDS SUMMARY | 2024-11-07 09:08 | XMS_ITS | Encounter Summary ---
Author Organization [facility] Address [address] [place] [address] Phone Care Team Providers Care Spring Assembler Supervisor Name Role Phone Emery Souza MD Primary Care Provider Encounter Details Date Type Department Care Team (Late st Contact Info) Description 10/21/2022 Transcribe Orders Virtual Department [address] [place] [address] Emery Souza MD [address] [place] [phone] Breast screening (Primary Dx) Social History Tobacco Use Types Packs/Day Years [...] MD IMG MG EXAMS Final R esult documented in this encounter Visit Diagnoses Diagnosis Breast screening- Primary Breast screening, unspecified Breast screening Breast screening, unspecified documented in this encounter Care Teams Spring Assembler Supervisor Relationship Specialty Start Date End Date Emery Souza MD [address] [place] [address] PCP - General 12/05/20 documented as of this encounter Additional Source Comments The information contained in this document represents components of the legal health record. It is not the complete legal health record.[facility]
[2024-11-07 11:21] LABS: MANUAL DIFF FLAG NO
[2024-11-07 11:31] LABS: Hematocrit 38.2 % (37.0-47.0); Hemoglobin 12.7 g/dl (12.0-16.0); Imm Gran Abs Auto 0.02 X10*3/uL (0.00-0.03); Imm Gran Pct Auto 0.4 % (0.0-0.4); Lymphocytes Absolute Auto 1.4 X10*3/uL (1.2-4.9); Mean Corpuscular HGB Conc 33.2 g/dl (31.0-35.0); Mean Corpuscular Hemoglobin 32.8 pg (27.0-33.0); Mean Corpuscular Volume 98.7 fL (80.0-98.0); NRBC Abs Auto 0.000 X10*3/uL (0.0-0.012); NRBC Pct Auto 0.0 /100WBC (0.0-0.2); Platelet Count 205 X10*3/uL (160-400); Red Blood Count 3.87 X10*6/uL (4.20-5.50); White Blood Count 5.1 X10*3/uL (4.8-10.8)
[2024-11-07 11:36] LABS: Appearance Urine Clear; Glucose Urine UA Negative (Negative); PH 5.5 (5.0-9.0); Specific Gravity - Urine 1.020 (1.005-1.025)
[2024-11-07 12:07] LABS: Alanine Aminotransferase 17 U/L (0-31); Albumin Level 4.1 g/dL (3.5-5.0); Alkaline Phosphatase 55 U/L (39-117); Anion Gap 12 (12-20); Aspartate Amino Transferase 24 U/L (5-31); Blood Urea Nitrogen 16 mg/dL (9-16); Calcium 9.1 mg/dL (8.4-10.2); Carbon Dioxide 27 mmol/L (22-29); Chloride 109 mmol/L (96-108); Cholesterol 237 mg/dL (<200); Estimated Glomerular Filt Rate > 60; HDL Cholesterol 74 mg/dL (>40); Potassium 4.6 mmol/L (3.3-5.1); Sodium 143 mmol/L (135-145); Total Protein 6.7 g/dL (6.5-8.0); Triglycerides 105 mg/dL (<150)
[2024-11-07 12:18] LABS: Microalbum/Creatinine Ratio Ur 5.8 ug/mg cr (<30)
== END 2024-11-07 08:15 | disposition home or self-care (01) ==
LOC: HO.WFDLDS 08:14
PROVIDERS: Visit Provider Family Medicine
DX: Z00.00 Encounter for general adult medical examination without abnormal findings (principal); I10 Essential (primary) hypertension
CPT/HCPCS: 36415; 80053; 80061; 81003; 82043; 82570; 84443; 85025

== ENCOUNTER 2024-11-10 08:42 | Outpatient (AMB) | payer MEDICARE, SELFPAY ==
--- NOTE | 2024-11-10 08:45 | MHC.PC.OV ---
Vital Signs 11/10/24 08:52 Height 5 ft 4 in Weight 167 lb BMI 28.7 BP 130/74 Blood Pressure Location Rt brachial Position Sitting Respiration 14 Pulse 67 Pulse Source Pulse Oximeter Temp 97.3 F Temp Source Temporal Artery Scan Pulse Oximetry (%) 97 Oxygen Delivery Method Room Air Intake Visit Reasons: CPE with f/u labs and health maint. HTN, lipids Intake Note: Nancy presents in the office today for her annual physical and a review of her lab results. Allergies poison tanya extract (POISON TANYA) Allergy (Unknown, Verified 11/10/24 08:51) RASH, SWELLING Medication List - Last Reconciled 11/10/24 by Emery Souza MD docusate sodium (Stool Softener) 50 mg PO DAILY ezetimibe 10 mg PO DAILY 90 days lisinopril 20 mg PO DAILY 90 days ondansetron 4 mg PO DAILY PRN 7 days Tobacco use date assessed: 11/10/24 Fall risk assessment: No Falls in past year Last assessed Fall Risk: 11/10/24 Dental Screening Dental Screen Date: 11/10/24 Did you have a dental visit in the last 12 months?: Yes Did you have a dental problem in the last 6 months where you did not have access to dental care?: No Was dental information given to patient?: Patient has dentist HPI CPE with f/u labs and health maint. HTN, lipids HPI Details Patient presents for complete physical exam and follow-up labs Reviewed labs with patient: LDL cholesterol has risen significantly. From 106-142. Goal is less than 100. She is taking Zetia but notes that her diet has had a lot more fatty meats in it lately. Her other labs are okay Patient feels well today. No new complaints. 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 1. Little interest or pleasure in doing things: not at all 2. Feeling down, depressed, or hopeless: not at all 3. Trouble falling or staying asleep, or sleeping too much: several days 4. Feeling tired or having little energy: several days 5. Poor appetite or overeating: several days 6. Feeling bad about yourself - or that you are a failure or have let yourself or your family down: not at all 7. Trouble concentrating on things, such as reading the newspaper or watching television: not at all 8. Moving or speaking so slowly that other people could have noticed. Or the opposite - being so fidgety or restless that you have been moving around a lot more than usual: not at all 9. Thoughts that you would be better off or of hurting yourself in some way: not at all Total score: 3 Depression Screening Interpretation: Negative Depression Screening Done: Yes 81748 - PHQ-9 Billing: Yes Source: Developed by Drs. Phil Gross, Kacie Us, Ryan Burden and colleagues, with an educational scout from [employer]. Thrive Questionnaire Date Thrive assessed: 11/10/24 I am a: Patient What is your living situation today?: I have a steady place to live Within the past 12 months, did the food you bought not last and you didn't have the money to get more?: Never true Within the past 12 months, did you worry whether your food would run out before you got money to buy more?: Never true Do you have trouble paying for medicines?: No Do you have trouble getting transportation to medical appointments?: No Do you have trouble paying your heating and electricity bill?: No Do you have trouble taking care of your child, family member or friend?: No Do you have trouble with day-to-day activities such as bathing, preparing meals, shopping, managing finances, etc.?: No Are you currently unemployed and looking for a job?: No Are you interested in more education?: No Please select the resources that you would like help with: None Currently or been in a relationship where the following occur: No concerns reported THRIVE Score: 0 AUDIT C Alcohol Use Questionnaire (AUDIT-C) 1. How often do you have a drink containing alcohol?: Monthly or less 2. How many drinks containing alcohol do you have on a typical day when you are drinking?: 1 or 2 3. How often do you have six or more drinks on one occasion?: Never Total Score: 1 NAOMY-7 AMB Questionnaire NAOMY-7 Date NAOMY - 7 assessed: 11/10/24 Feeling nervous, anxious, or on edge: 1 = Several days Not being able to stop or control worryin = Several days Worrying too much about different things: 1 = Several days Trouble relaxin = Several days Being so restless that it is hard to sit still: 1 = Several days Becoming easily annoyed or irritable: 0 = Not at all Feeling afraid as if something awful might happen: 1 = Several days Total NAOMY-7 score (0-4 normal; 5-9 mild; 10-14 moderate; 15-21 severe): 6 Source: Developed by Drs. Phil Gross, Kacie Us, Ryan Burden and colleagues, with an educational scout from [employer]. NAOMY-7 Assessment Billing NAOMY-7 Assessment Tool: NAOMY-7 Assessment 42571 Review of Systems Const Denies chills, Denies fatigue, Denies fever(s), Denies headache(s) and Denies weakness Eyes Denies change in vision ENT Denies dizziness, Denies headache(s), Denies hearing loss, Denies nasal congestion, Denies sinus pain, Denies sinus pressure and Denies sore throat Card Denies chest pain, Denies lightheadedness, Denies dyspnea and Denies other (palpitations) Resp Denies cough, Denies dyspnea and Denies wheezing GI Denies abdominal pain, Denies melena, Denies hematochezia, Denies change in bowel habits, Denies dyspepsia and Denies nausea Denies hematuria and Denies dysuria Musc Denies abnormal gait, Denies myalgias, Denies arthralgias, Denies numbness and Denies tingling Skin/Breast Denies rash, Denies unusual bruising and Denies wounds Neuro Denies abnormal gait, Denies dizziness, Denies headache(s), Denies memory loss, Denies numbness, Denies Sensory deficit (Neuro), Denies tingling and Denies weakness Psych Denies anxiety, Denies depression and Denies memory loss Endo Denies cold intolerance, Denies fatigue, Denies heat intolerance, Denies polydipsia and Denies polyuria Vasyl/Lymph Denies easy bleeding and Denies easy bruising Aller/Immun Denies wheezing Physical exam (Primary Care) Vital Signs: Last Vital Signs Temp 97.3 F 11/10/24 08:52 Pulse 67 11/10/24 08:52 Resp 14 11/10/24 08:52 BP 130/74 11/10/24 08:52 Pulse Ox 97 11/10/24 08:52 Oxygen Delivery Method Room Air 11/10/24 08:52 BMI result Body Mass Index 28.7 Tobacco/Smoking Status: Tobacco use Status Tobacco use date assessed 11/10/24 11/10/24 08:57 Patient Tobacco Use Status Never used Tobacco 11/10/24 08:52 e-Cigarette/Vaping Use Never Used 11/10/24 08:52 PHQ-9: PHQ-9 Score PHQ-9: Total score 3 11/10/24 08:57 Depression Screening Interpretation: Negative Thrive Assessment: Date of Thrive Assessment Date Thrive assessed 11/10/24 11/10/24 08:48 Currently or been in a relationship where the following occur: No concerns reported Const General: no acute distress, well developed, alert and awake Nutritional Appearance: well nourished Orientation/consciousness: patient oriented x3 HENMT Head: Yes normocephalic and Yes atraumatic Ears: hearing grossly normal bilaterally and TM's normal bilaterally General nose exam: Normal external nose present and Normal nares present Mouth: Normal oral and palatal mucosa present and moist mucous membranes Teeth and gingiva: dentition normal Throat: Yes posterior oropharynx normal Eyes Pupils: Equal, round and reactive pupils present and Pupil accommodation reflex normal EOM: EOMs intact bilaterally Neck Neck: Yes normal visual inspection, Yes no lymphadenopathy and Yes trachea midline Thyroid: Thyroid normal Carotids: no bruits Lymphatic: no lymphadenopathy noted Chest Chest palpation & inspection: normal inspection of the chest Resp Effort & Inspection: normal respiratory effort Auscultation: clear to auscultation bilaterally Cardio Rate: regular rate Rhythm: regular rhythm Heart sounds: S1 normal heart sound present, S2 normal heart sound present, no gallops, no murmurs and no rubs Bruits: no abdominal aortic bruits and no carotid bruits GI Palpation (GI): No Abdominal aortic bruit present, Soft to palpation, nontender, No hepatosplenomegaly present and No Rebound tenderness present Auscultation: normal bowel sounds General: Yes no CVA tenderness Back/Spine/Pelvis Back: no CVA tenderness Cervical Spine: cervical ROM normal and No Cervical spine tenderness Thoracic/Lumbar Spine: thoraco-lumbar ROM normal, No pain with thoraco-lumbar ROM, No thoracic spinal tenderness and No lumbar spinal tenderness Skin Lesions: no lesions Rashes: no rashes Trauma: no lacerations or abrasions Wounds: no wounds Nails: normal Neuro General: patient oriented x3, gait normal and CN's II-XI intact bilaterally Cranial nerves: Yes Equal, round and reactive pupils present Cognition (Neuro): normal cognition Gait exam (Neuro): Normal gait present Motor exam (neuro): 5/5 motor strength present throughout Sensory Exam: No Sensory deficit (Neuro) Deep tendon reflexes (DTR's): Right patellar reflex intensity grade: 2+ and Left patellar reflex intensity grade: 2+ Extrem General: Yes normal to inspection and No edema Psych Appearance: grossly normal Affect: normal affect Attitude: cooperative Thought process: Normal thought process present Coding Level of Care Code Est Pt Level 4 (49689) Diagnoses HTN (hypertension) I10 Hypercholesterolemia E78.00 Osteopenia M85.80 Screening for colon cancer Z12.11 Breast cancer screening by mammogram Z12.31 Annual physical exam Z00.00 Additional Codes NAOMY-7 Assessment Billing - NAOMY-7 Assessment Tool: NAOMY-7 Assessment 86802 ([id number]) PHQ-9 - 84653 - PHQ-9 Billing: Yes ([id number]) Assessment & Plan Assessment & Plan (1) HTN (hypertension): Code(s): I10 - Essential (primary) hypertension Category: Medical Plan: Blood pressure is controlled. Goal is less than 140/90 Continue current medications (2) Hypercholesterolemia: Code(s): E78.00 - Pure hypercholesterolemia, unspecified Category: Medical Plan: LDL cholesterol has risen to 142. Continue Zetia Work at diet lower in saturated fats and cholesterol, diet and exercise (3) Osteopenia: Code(s): M85.80 - Other specified disorders of bone density and structure, unspecified site Category: Medical Plan: Encouraged good sources of calcium and vitamin-D as well as weight-bearing exercise. She is due to repeat bone density test next year (4) Screening for colon cancer: Code(s): Z12.11 - Encounter for screening for malignant neoplasm of colon Category: Medical Plan: Followed by [facility] Up-to-date (5) Breast cancer screening by mammogram: Code(s): Z12.31 - Encounter for screening mammogram for malignant neoplasm of breast Category: Medical Plan: Last mammogram 2022 Mammogram ordered. She wants to get her mammograms at [facility] (6) Annual physical exam: Code(s): Z00.00 - Encounter for general adult medical examination without abnormal findings Category: Medical Plan: 74-year-old female presents for complete physical exam Encouraged healthy diet with active lifestyle and plenty of exercise Orders: Orders MM tomosynthesis screening BI Today Z12.31 - Encounter for screening mammogram for malignant neoplasm of breast Comprehensive [place]. Panel Fast Today E78.00 - Pure hypercholesterolemia, unspecified, Z00.00 - Encounter for general adult medical examination without abnormal findings Lipid Panel Today E78.00 - Pure hypercholesterolemia, unspecified, Z00.00 - Encounter for general adult medical examination without abnormal findings
[2024-11-10 08:52] VITALS: BP 130/74; PULSE 67; RESP 14; TEMP 36.3; O2SAT 97; BMI 28.7
--- OUTSIDE RECORDS SUMMARY | 2024-11-10 09:23 | XMS_ITS | Encounter Summary ---
Author Organization [facility] Address [address] [place] [address] Phone Care Team Providers Care Moisture Tester Name Role Phone Emery Souza MD Primary Care Provider Encounter Details Date Type Department Care Team (Late st Contact Info) Description 12/05/2020 Procedure Pass [facility], [address] [address] Social History Tobacco Use Types Packs/Day Years [...] on filedocumented in this encounter Care Teams Moisture Tester Relationship Specialty Start Date End Date Emery Souza MD [address] [place] [address] PCP - General 12/05/20 documented as of this encounter Additional Source Comments The information contained in this document represents components of the legal health record. It is not the complete legal health record.[facility]
--- OUTSIDE RECORDS SUMMARY | 2024-11-10 09:23 | XMS_ITS | Clinical Summary ---
Author Organization [facility] Address [address] [place] [phone] Phone Care Team Providers Care Boat Laborer Name Role Phone Emery Souza MD Primary [...] [place] [employer]ACEMENT Care Teams Boat Laborer Relationship Specialty Start Date End Date Emery Souza MD [address] [place] [address] PCP - General 12/05/20 Additional Source Comments The information contained in this document represents components of the legal health record. It is not the complete legal health record.[facility]
--- OUTSIDE RECORDS SUMMARY | 2024-11-10 09:23 | XMS_ITS | Encounter Summary ---
Author Organization [facility] Address [address] [place] [address] Phone Care Team Providers Care Bright Cutter Name Role Phone Emery Souza MD Primary Care Provider Encounter Details Date Type Department Care Team (Late st Contact Info) Description 10/21/2022 Procedure Pass [facility], [address] [address] Social History Tobacco Use Types Packs/Day Years [...] on filedocumented in this encounter Care Teams Bright Cutter Relationship Specialty Start Date End Date Emery Souza MD [address] [place] [address] PCP - General 12/05/20 documented as of this encounter Additional Source Comments The information contained in this document represents components of the legal health record. It is not the complete legal health record.[facility]
--- OUTSIDE RECORDS SUMMARY | 2024-11-10 09:23 | XMS_ITS | Encounter Summary ---
Author Organization [facility] Address [address] [place] [address] Phone Care Team Providers Care Energy Consultant Name Role Phone Emery Souza MD Primary Care Provider Encounter Details Date Type Department Care Team (Late st Contact Info) Description 10/21/2022 Transcribe Orders Virtual Department [address] [place] [address] Emery Souza MD [address] [place] [phone] Breast screening (Primary Dx) Social History Tobacco [...] unspecified documented in this encounter Care Teams Energy Consultant Relationship Specialty Start Date End Date Emery Souza MD [address] [place] [address] PCP - General 12/05/20 documented as of this encounter Additional Source Comments The information contained in this document represents components of the legal health record. It is not the complete legal health record.[facility]
--- OUTSIDE RECORDS SUMMARY | 2024-11-10 09:23 | XMS_ITS | Encounter Summary ---
Author Organization [facility] Address [address] [place] [address] Phone Care Team Providers Care Flat Sheet Maker Name Role Phone Albert Gill DO Primary Care Provider +1- [phone] Martine Geller MD, MPH Primary Care Provid er Pcp, Unknown Primary Care Provider Emery Segovia MD Primary Care Provider Encounter Details Date Type Department Care Team (Late st Contact Info) Description 12/20/2017 Ancillary Orders Virtual Department [address] [place] [address] Albert Gill, DO [address] [place] [address] Breast screening Social History Tobacco Use Types [...] Images interpreted in conjunction with R-2 Image Internal Audit Director computer-aided detection (CAD). FINDINGS: BREAST DENSITY: There [...] unspecified documented in this encounter Care Teams Flat Sheet Maker Relationship Specialty Start Date End Date Albert Gill DO [address] [place] [address] PCP - General Internal Medicine 12/20/17 01/24/18 Martine Geller MD, MPH [address] [address] [email or web address] PCP - General Family Medicine 01/25/18 10/13/20 Pcp, Unknown PCP - General 10/14/20 12/04/20 Emery Souza MD [address] [place] [address] PCP - General 12/05/20 documented as of this encounter Additional Source Comments The information contained in this document represents components of the legal health record. It is not the complete legal health record.[facility]
== END 2024-11-10 09:12 | disposition home or self-care (01) ==
PROVIDERS: PCP Family Medicine; Visit Provider Family Medicine
DX: I10 Essential (primary) hypertension (principal); E78.00 Pure hypercholesterolemia, unspecified; M85.80 Other specified disorders of bone density and structure, unspecified site; Z12.11 Encounter for screening for malignant neoplasm of colon; Z12.31 Encounter for screening mammogram for malignant neoplasm of breast; Z00.00 Encounter for general adult medical examination without abnormal findings

== ENCOUNTER → 2024-11-10 08:42 | Outpatient (BNVA) | payer MEDICARE, SELFPAY | PROVIDERS: PCP Family Medicine; Visit Provider Family Medicine | DX: Z00.00 Encounter for general adult medical examination without abnormal findings (principal); I10 Essential (primary) hypertension; E78.00 Pure hypercholesterolemia, unspecified; M85.80 Other specified disorders of bone density and structure, unspecified site; Z79.899 Other long term (current) drug therapy; Z13.31 Encounter for screening for depression; Z13.39 Encounter for screening examination for other mental health and behavioral disorders | CPT/HCPCS: 96127; 99212 ==

== ENCOUNTER 2024-12-29 08:30 | Outpatient (REF) | payer MEDICARE, SELFPAY ==
--- NOTE | ~2024-12-29 | MM_ITS ---
EXAMINATION: MM SCREENING DIGITAL BREAST TOMOSYNTHESIS, BILATERAL CLINICAL INFORMATION: Screening. Asymptomatic. COMPARISON: Mammography: Baseline. TECHNIQUE: Digital breast mammography with tomosynthesis is performed in both the craniocaudal and mediolateral oblique views along with computer-aided detection (CAD). FINDINGS: There are scattered areas of fibroglandular density. There are no significant masses, abnormal calcifications, or other abnormalities. MM/MM tomosynthesis screening BI IMPRESSION: No mammographic evidence of malignancy. ASSESSMENT: BI-RADS Category 1: Negative RECOMMENDATION: Routine annual mammography screening. 1 year F/U This examination should not preclude the clinical evaluation of a suspicious palpable abnormality. This patient's information was entered into a reminder system with a target due date for their next mammogram. Electronically signed by: Radha Maravilla DO 01/01/2025 02:51 PM [facility]
--- OUTSIDE RECORDS SUMMARY | 2024-12-29 08:45 | XMS_ITS | Encounter Summary ---
Author Organization [facility] Address [address] [place] [address] Phone Care Team Providers Care Youth Probation Officer Name Role Phone Emery Souza MD Primary Care Provider Encounter Details Date Type Department Care Team (Late st Contact Info) Description 12/05/2020 Procedure Pass [facility], [address] [address] Social History Tobacco Use Types Packs/Day Years [...] on filedocumented in this encounter Care Teams Youth Probation Officer Relationship Specialty Start Date End Date Emery Souza MD PCP - General 12/05/20 documented as of this encounter Additional Source Comments The information contained in this document represents components of the legal health record. It is not the complete legal health record.[facility]
--- OUTSIDE RECORDS SUMMARY | 2024-12-29 08:45 | XMS_ITS | Encounter Summary ---
Author Organization [facility] Address [address] [place] [address] Phone Care Team Providers Care Chief Lending Officer Name Role Phone Emery Souza MD Primary Care Provider Encounter Details Date Type Department Care Team (Late st Contact Info) Description 10/21/2022 Transcribe Orders Virtual Department [address] [place] [address] Emery Souza MD [address] [place] [phone] Breast screening (Primary Dx) Social History Tobacco [...] unspecified documented in this encounter Care Teams Chief Lending Officer Relationship Specialty Start Date End Date Emery Souza MD PCP - General 12/05/20 documented as of this encounter Additional Source Comments The information contained in this document represents components of the legal health record. It is not the complete legal health record.[facility]
--- OUTSIDE RECORDS SUMMARY | 2024-12-29 08:45 | XMS_ITS | Encounter Summary ---
Author Organization [facility] Address [address] [place] [phone] Phone Care Team Providers Care Aerospace Physiological Technician Name Role Phone Emery Souza MD Primary Care Provider Encounter Details Date Type Department Care Team (Late st Contact Info) Description 10/21/2022 Procedure Pass [facility], [address] [address] Social History Tobacco Use Types Packs/Day Years [...] on filedocumented in this encounter Care Teams Aerospace Physiological Technician Relationship Specialty Start Date End Date Emery Souza MD PCP - General 12/05/20 documented as of this encounter Additional Source Comments The information contained in this document represents components of the legal health record. It is not the complete legal health record.[facility]
--- OUTSIDE RECORDS SUMMARY | 2024-12-29 08:45 | XMS_ITS | Clinical Summary ---
Author Organization [facility] Address [address] [place] [address] Phone Care Team Providers Care Can Crimper Name Role Phone Emery Souza MD Primary [...] [place]ACEMENT Care Teams Can Crimper Relationship Specialty Start Date End Date Emery Souza MD PCP - General 12/05/20 Additional Source Comments The information contained in this document represents components of the legal health record. It is not the complete legal health record.[facility]
--- OUTSIDE RECORDS SUMMARY | 2024-12-29 08:45 | XMS_ITS | Encounter Summary ---
Author Organization [facility] Address [address] [place] [address] Phone Care Team Providers Care Pharmaceutical Development Technician Name Role Phone Albert Gill DO Primary Care Provider +1- [phone] Martine Geller MD, MPH Primary Care Provid er Pcp, Unknown Primary Care Provider Emery Segovia MD Primary Care Provider Encounter Details Date Type Department Care Team (Late st Contact Info) Description 12/20/2017 Ancillary Orders Virtual Department [address] [place] [address] Albert Gill, DO [address] [place] [address] Breast screening Social History Tobacco Use Types [...] Images interpreted in conjunction with R-2 Image Senior Android Software Engineer computer-aided detection (CAD). FINDINGS: [...] unspecified documented in this encounter Care Teams Pharmaceutical Development Technician Relationship Specialty Start Date End Date Albert Gill DO [address] [place] [address] PCP - General Internal Medicine 12/20/17 01/24/18 Martine Geller MD, MPH [address] [place] [address] [email or web address] PCP - General Family Medicine 01/25/18 10/13/20 Pcp, Unknown PCP - General 10/14/20 12/04/20 Emery Souza MD PCP - General 12/05/20 documented as of this encounter Additional Source Comments The information contained in this document represents components of the legal health record. It is not the complete legal health record.[facility]
== END 2024-12-29 08:31 | disposition home or self-care (01) ==
LOC: HO.MAMMO 08:30
PROVIDERS: PCP Family Medicine; Visit Provider Family Medicine
DX: Z12.31 Encounter for screening mammogram for malignant neoplasm of breast (principal)
CPT/HCPCS: 77063; 77067

== ENCOUNTER → 2024-12-29 08:45 | Outpatient (BNV) | payer MEDICARE, SELFPAY | PROVIDERS: PCP Family Medicine; Visit Provider Internal Medicine | DX: Z12.31 Encounter for screening mammogram for malignant neoplasm of breast (principal) | CPT/HCPCS: 77063; 77067 ==